=== PATIENT | female | born 1995 | race Caucasian/White ===

== ENCOUNTER 2023-07-09 00:28 | Inpatient (IN) ==
[2023-07-09] MEDS ORDERED: LIDOCAINE 1% LOCAL 20 ML VIAL INFIL PRN (01:08)
[2023-07-09] MEDS ORDERED: OXYTOCIN 30 UNITS/NSS 30 UNITS/500 ML BAG IV PRN ×2 (01:08→10:41)
[2023-07-09] MEDS: LACTATED RINGER'S 1,000 ML IV PRN ×2 (01:25→02:21)
[2023-07-09] MEDS ORDERED: fentaNYL citrate PF 100 MCG/2 ML VIAL ONE (01:28)
[2023-07-09] MEDS ORDERED: ePHEDrine sulfate 50 MG/ML AMP ONE (01:28)
[2023-07-09] MEDS ORDERED: fentANYL 2 MCG/ML BUPIVacaine 0.125%-NSS 100ML BAG ONE (01:29)
[2023-07-09] MEDS ORDERED: BUPIVACAINE 0.25% PF 30 ML VIAL ONE (01:29)
[2023-07-09] MEDS ORDERED: LIDOCAINE 2%/EPINEPHRINE 1:200,000 20 ML PF ONE (01:29)
[2023-07-09] MEDS ORDERED: SODIUM CHLORIDE 0.9% PF INJ 10 ML VIAL ONE (01:29)
[2023-07-09] MEDS ORDERED: PENICILLIN GK 6 MU in DEXTROSE 5% 250 ML IV STA (01:29)
--- NOTE | 2023-07-09 01:39 | History & Physical Report ---
Date of Service July 09, 2023 Assessment & Plan (1) Post-dates : Plan: Admit in labor. epidural planned Admission and Anticipated Discharge Date Admission Date: July 09, 2023 History of Present Illness Chief Complaint: onset of labor post-dates Primary Care Provider: Lashonda James MD 27 F P0000 at 40+ weeks admitted in labor. GBS is positive. Allergies Allergy/AdvReac Type Severity Reaction Status Date / Time ciprofloxacin [From Cipro] Allergy Rash Verified 07/09/23 00:58 sulfamethoxazole Allergy Hives Verified 07/09/23 00:58 [From Bactrim] trimethoprim [From Bactrim] Allergy Hives Verified 07/09/23 00:58 Home Medications Medication Instructions Recorded Confirmed Type vit no.133-ferrous 1 tab PO 07/09/23 History fumarate 28 mg-folic acid 800 mcg tablet () Patient History Surgical History (Updated 07/09/23 @ 00:57 by Elly Mcneal) H/O knee surgery [place] teeth extracted Social History Smoking Status: Never smoker Hx Alcohol Use: No Hx Substance Use: No Preferred 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 Beliefs That Will Affect Care: None marital status: Current Living Situation: Spouse Other Information That Helps Us Care for You: No Feels Safe at Home: Yes Safety Concerns: Feels Safe At This Time Assistive Devices: Glasses Review of Systems All systems reviewed & are unremarkable except as noted in HPI & below Physical Exam Constitutional: WD/WN, vitals as above Eyes: PERRL, conjunctivae normal, anicteric sclerae Respiratory: normal respiratory effort, lungs clear to auscultation Cardiovascular: Rate/Rhythm: regular rate Gastrointestinal (Abdomen): Inspection/Auscultation: abdomen normal to inspection Musculoskeletal: Extremities: extremities normal to inspection Skin: no rashes, warm and dry Neurologic: patellar DTR's 2+ bilat, sensation intact Psychiatric: A+Ox3, euthymic affect Genitourinary: OB Exam Abdomen: + fundal height and + vertex Manual OB Exam: + cervical dilation 4 cm, + cervical effacement 100% and + station -1 OB Exam Monitor Tracing: + external FHT monitor used, + external uterine monitor used, + category I and + normal FHT variability Results & Data Vital Signs (Past 12 Hours) Vital Signs Temp Pulse Resp BP 07/09/23 00:47 36.5 C 62 18 139/88 07/09/23 00:46 18 07/09/23 00:46 36.5 C 62 18 139/88 07/09/23 00:45 64 151/80 H Monitoring External Monitor Cat 1 (1) Post-dates Post-term type: 40-42 weeks gestation Qualified Code(s): O48.0 - Post-term
[2023-07-09 01:47] LABS: Hematocrit (blood only) 35.1 % (37.0-47.0); Hemoglobin 12.6 g/dl (12.0-16.0); Mean Corpuscular Hemoglobin 31.9 pg (25.0-34.0); Mean Corpuscular Hgb Conc 35.9 g/dL (32.0-36.0); Mean Corpuscular Volume 88.9 fL (80.0-100.0); Platelet Count 155 K/uL (130-400); RDW Coefficient of Variation 12.5 % (11.5-14.5); RDW Standard Deviation 40.5 fL (36.4-46.3); Red Blood Count 3.95 M/uL (4.20-5.40); White Blood Count 8.61 K/ul (4.8-10.8)
[2023-07-09] MEDS ORDERED: ePHEDrine sulfate 50 MG/ML AMP IV PRN (02:00)
[2023-07-09] MEDS ORDERED: ONDANSETRON INJ 2 MG/ML 2 ML VIAL IV PRN (02:00)
[2023-07-09] MEDS ORDERED: LIDOCAINE 2% MPF LOCAL 5 ML VIAL EPI PRN (02:00)
[2023-07-09] MEDS ORDERED: NALBUPHINE HCL 5 MG in SYRINGE 0 ML IV PRN (02:00)
[2023-07-09] MEDS ORDERED: ROPIVACAINE 0.5% PF 5 MG/ML 20 ML VIAL EPI PRN (02:00)
[2023-07-09] MEDS ORDERED: BUPIVACAINE 0.25% PF 30 ML VIAL EPI STA (02:00)
[2023-07-09] MEDS ORDERED: diphenhydrAMINE 50 MG/ML VIAL IV PRN (02:00)
[2023-07-09] MEDS ORDERED: SODIUM CHLORIDE 0.9% PF INJ 10 ML VIAL EPI STA (02:00)
[2023-07-09] MEDS ORDERED: fentANYL 2 MCG/ML BUPIVacaine 0.125%-NSS 100ML BAG EPI PRN (02:00)
[2023-07-09] MEDS ORDERED: NALOXONE HCL 0.4 MG/1 ML VIAL/CARP IV PRN (02:00)
[2023-07-09] MEDS ORDERED: SODIUM CHLORIDE 0.9% PF INJ 10 ML VIAL EPI PRN (02:00)
[2023-07-09] MEDS ORDERED: fentaNYL citrate PF 100 MCG/2 ML VIAL EPI STA (02:00)
[2023-07-09] MEDS ORDERED: BUPIVACAINE 0.25% PF 30 ML VIAL EPI PRN (02:00)
[2023-07-09] MEDS ORDERED: fentaNYL citrate PF 100 MCG/2 ML VIAL EPI PRN (02:00)
[2023-07-09] MEDS ORDERED: LIDOCAINE 2%/EPINEPHRINE 1:200,000 20 ML PF EPI STA (02:00)
[2023-07-09] MEDS ORDERED: NALOXONE HCL 1 MG in SODIUM CHLORIDE 0.9% 1,000 ML IV PRN (02:00)
--- NOTE | 2023-07-09 02:02 | Anesthesiology Consultation ---
Date of Service July 09, 2023 Assessment & Plan (1) Encounter for pre-operative examination: Chart Review Chart Review: Patient NOT seen in Pre Admission Testing and Acceptable Risk for Labor Epidural Consults Requested none History Height/Weight Height: 5 ft 7 in Weight: 83.915 kg Allergies Allergy/AdvReac Type Severity Reaction Status Date / Time ciprofloxacin [From Cipro] Allergy Rash Verified 07/09/23 00:58 sulfamethoxazole Allergy Hives Verified 07/09/23 00:58 [From Bactrim] trimethoprim [From Bactrim] Allergy Hives Verified 07/09/23 00:58 Medications Home Medications Medication Instructions Recorded Confirmed Last Taken vit no.133-ferrous 1 tab PO 07/09/23 07/08/23 fumarate 28 mg-folic acid 800 mcg tablet () Active Medications Generic Name Dose Route Start Last Admin Trade Name Freq PRN Reason Stop Dose Admin Lactated Ringer's 1,000 mls @ 125 mls/hr 07/09/23 01:08 07/09/23 02:21 Lr IV 07/11/23 01:07 125 mls/hr .Q8H PRN Administration L&D Protocol Protocol Penicillin G Potassium 6 mu/ 262 mls @ 262 mls/hr 07/09/23 01:29 07/09/23 01:39 Dextrose IV 07/09/23 02:28 262 mls/hr NOW STA Administration Past Medical History Medical History (Updated 07/09/23 @ 02:02 by Ismael Black MD) Encounter for pre-operative examination Exercise / Class Metabolic Activity II 4-5 Yardwork/Stairs/Walk up hill Past Surgical History Surgical History H/O knee surgery [place] teeth extracted Social History Smoking Status: Never smoker Hx Alcohol Use: No Hx Substance Use: No Physical Exam Vital Signs Last Vital Signs Temp 36.5 C 07/09/23 00:47 Pulse 75 07/09/23 02:23 Resp 18 07/09/23 00:47 BP 125/83 07/09/23 02:23 Pulse Ox 97 07/09/23 02:20 Testing Laboratory Results 07/09/23 01:30
[2023-07-09] MEDS: PENICILLIN GK 3 MU in DEXTROSE 5% 100 ML IV PRN ×2 (05:25→09:33)
--- OUTSIDE RECORDS SUMMARY | 2023-07-09 08:10 | External Medical Summary | Summary of Care ---
Author Name Unknown Organization [facility] Address [address] [facility] [place] [address] Phone [phone] Care Team Providers Care Cycle Analyst Name Role Phone Patrick Sanchez Primary Care Provider Reason for Visit * Reason Comments Return Visit Encounter Details Date Type Department Care Team (Latest Contact Info) Description 06/16/2023 8:45 AM EST Office Visit Gynecology/Obstetric [facility] [address] [place] [address] Jonathan Buckley MD [address] [place] [address] Supervision of normal first , antepartum*; Rh negative status during in third trimester; Carrier of group B Streptococcus Allergies Active Allergy Reactions Criticality Noted Date Comments Ciprofloxacin Hives 09/24/2016 Sulfa Antibiotics Hives Low 09/24/2016 documented as of this encounter (statuses as of 06/16/2023) Medications Medication Sig Dispensed Refills Start Date End Date Status 19 29-1 MG Oral Tablet Chewable Take by mouth. 0 Active Breast Pump Use as directed. 1 Each 0 05/18/2023 Active documented as of this encounter (statuses as of 06/16/2023) Active Problems Problem Noted Date Diagnosed Date Carrier of group B Streptococcus 06/03/2023 Rh negative status during 11/27/2022 Supervision of normal first , antepartu m 11/26/2022 Estimated Date of Delivery Comme nts Yes 06/28/2023 Based on last me nstrual period of 09/21/2022 documented as of this encounter (statuses as of 06/16/2023) Resolved Problems Problem Noted Date Diagnosed Date Resolved Date Umbilical cord cyst during p regnancy, antepartum 12/29/2022 04/01/2023 Last Assessment & Plan: Resolved at prior u/s. Low risk NIPT and msAFP appreciated. documented as of this encounter (statuses as of 06/16/2023) Immunizations Name Administration Dates Next Due COVID-19 mRNA, LNP-s, No Pre serve, 2-Dose Series ([employer]) 05/27/2021,08/18/2020,07/28/2020 Hepatitis B, 0-19 yrs 08/10/1996,1995,10/08 IPV - Polio Virus Vaccine (Inact) 1996,05/08/1996,03/01/1996, 996 MMR - Measles/Mumps/Rubella Vaccine 03/04/2001,0 11/08/1996 RSV Vac., Bivalent, Perfusio n F, Pf,0.5 Ml (Abrysvo) 05/21/2023 SEASONAL INFLUENZA, PF, 6 M & Above, IM , (FLULAVAL or FLUZONE) 05/10/2023,04/25/2022 Seasonal Influenza, Quadriva lent, No Preserve, IM 05/14/2021 TDAP (age 10 and older)(Boostrix) 04/16/2023,,08/05/2016 Varicella Vaccine (Chicken Pox) 09/12/2008,11/08 documented as of this encounter Social History Tobacco Use Types Packs/Day Years Used Date Smoking Tobacco: Never Smokeless Tobacco: Never Alcohol Use Standard Drinks/Week Comments No 0 (1 standard drink = 0.6 oz pur e alcohol) Hunger Vital Sign Answer Date Recorded Within the past 12 months, y ou worried that your food would run out before you got the money to buy more. Patient refused Within the past 12 months, t he food you bought just didn't last and you didn't have money to get more. Patient refused Malcolm Depression Scale Answer Date Recorded Malcolm Depression Scale Total 0 05/05/2023 The thought of harming myself has occurred to me . Never 05/05/2023 Estimated Date of Delivery Comme nts Yes 06/28/2023 Based on last me nstrual period of 09/21/2022 Sex and Gender Information Value Date Recorded Sex Assigned at Female 11/26/2022 9:59 AM EDT Gender Identity Female 11/26/2022 9:59 AM EDT Sexual Orientation Straight 11/26/2022 9: 59 AM EDT Job Start Date Occupation Industry Not on file Not on file Not on file documented as of this encounter Last Filed Vital Signs Vital Sign Reading Time Taken Comments Blood Pressure 112/68 06/16/2023 8:47 AM EST Pulse - - Temperature - - Respiratory Rate - - Oxygen Saturation - - Inhaled Oxygen Concentration - - Weight 82.1 kg (181 lb) 06/16/2023 8:47 AM EST Height 170.2 cm (5' 7") 06/16/2023 8:47 AM EST Body Mass Index 28.35 06/16/2023 8:47 AM EST documented in this encounter Progress Notes * Jonathan Buckley MD - 06/16/2023 8:55 AM EST Pt doing well No complaints Pt does not wish to have cervical exam today RTC 1 week * Loan Hendrickson LPN - 06/16/2023 8:47 AM EST 38w2d Denies any issues documented in this encounter Plan of Treatment Upcoming Encounters Date Type Department Care Team (Late st Contact Info) Description 06/23/2023 8:30 AM EST Office Visit Gynecology/Obstetrics [address] [place] [address] Linette High CRNP [address] [place] [address] 06/28/2023 9:30 AM EST Office Visit Gynecology/Obstetrics [facility] [address] [place] [address] Raven Abarca, [facility] [address] [facility] [place] [address] 07/19/2023 10:30 AM EST Telemedicine Gynecology/Obstetrics [facility] [address] [place] [address] Linette High CRNP [address] [place] [address] 08/10/2023 10:30 AM EST Office Visit Gynecology/Obstetrics [facility] [address] [place] [address] Linette High CRNP [address] [place] [address] Health Maintenance Due Date Last Done Comments Depression Screening 2007 COVID-19 Vaccine (2022-2 4 season) 2023 05/27/2021, 08/18/2020, 07/28/2020 Pap Smear 11/26/2025 11/26/2022 DTaP,Tdap,and Td Vaccines (4 - Td or Tdap) 04/16/2033 04/16/2023, 02/23/2022, 08/05/2016 Hepatitis B Completed 08/10/1996, 1995, 1995 Gonorrhea / Chlamydia Screen Discontinued 11/26/2022 Influenza Vaccine (FLU shot) Completed 09/2022, 04/25/2022, 05/14/2021 GARDASIL-HPV IMMUNIZATION SERIES Aged Out No longer eligible based on patient's age to complete this topic MENINGOCOCCAL (MENACTRA/MENVEO) Aged Out No longer eligible based on patient's age to complete this topic Pneumococcal Vaccine: Pediatrics (0 to 5 Years) and At-Risk Patients (6 to 64 Years) Aged Out No longer eligible based on patient's age to complete this topic documented as of this encounter Medical Devices Not on filedocumented as of this encounter Visit Diagnoses Diagnosis Supervision of normal first , antepartum- Primary Rh negative status during in third trimester Carrier of group B Streptococcus Carrier or suspected carrier of Group B streptococcus documented in this encounter Care Teams Cycle Analyst Relationship Specialty Start Date End Date Patrick Sanchez DO [address] [place] [address] PCP - General Family Medicine 07/28/21 documented as of this encounter
--- OUTSIDE RECORDS SUMMARY | 2023-07-09 08:10 | External Medical Summary | Summary of Care ---
Author Name Unknown Organization [facility] Address [address] [facility] [place] [address] Phone [phone] Care Team Providers Care Heel Painter Name Role Phone Patrick Sanchez Primary Care Provider Reason for Visit * Reason Comments Return Visit Encounter Details Date Type Department Care Team (Late st Contact Info) Description 06/23/2023 8:30 AM EST Office Visit Gynecology/Obstetri [facility] [address] [place] [address] Linette High CRNP [address] [place] [address] Supervision of normal first , antepartum*; Rh negative status during in third trimester; Carrier of group B Streptococcus Allergies Active Allergy Reactions Criticality Noted Date Comments Ciprofloxacin Hives 09/24/2016 Sulfa Antibiotics Hives Low 09/24/2016 documented as of this encounter (statuses as of 06/23/2023) Medications Medication Sig Dispensed Refills Start Date End Date Status 19 29-1 MG Oral Tablet Chewable Take by mouth. 0 Active Breast Pump Use as directed. 1 Each 0 05/18/2023 Active documented as of this encounter (statuses as of 06/23/2023) Active Problems Problem Noted Date Diagnosed Date Carrier of group B Streptococcus 06/03/2023 Rh negative status during 11/27/2022 Supervision of normal first , antepartu m 11/26/2022 Estimated Date of Delivery Comme nts Yes 06/28/2023 Based on last me nstrual period of 09/21/2022 documented as of this encounter (statuses as of 06/23/2023) Resolved Problems Problem Noted Date Diagnosed Date Resolved Date Umbilical cord cyst during p regnancy, antepartum 12/29/2022 04/01/2023 Last Assessment & Plan: Resolved at prior u/s. Low risk NIPT and msAFP appreciated. documented as of this encounter (statuses as of 06/23/2023) Immunizations Name Administration Dates Next Due COVID-19 mRNA, LNP-s, No Pre serve, 2-Dose Series ([employer]) 05/27/2021,08/18/2020,07/28/2020 Hepatitis B, 0-19 yrs 08/10/1996,1995,10/08 IPV [...] have money to get more. Patient refused [place] Depression Scale Answer Date Recorded [place] Depression Scale Total 0 05/05/2023 The thought [...] Sign Reading Time Taken Comments Blood Pressure 104/62 06/23/2023 8:20 AM EST Pulse - - Temperature - - Respiratory Rate - - Oxygen Saturation - - Inhaled Oxygen Concentration - - Weight 83.5 kg (184 lb) 06/23/2023 8:20 AM EST Height - - Body Mass Index 28.82 06/16/2023 8:47 AM EST documented in this encounter Progress Notes * Linette High CRNP - 06/23/2023 8:46 AM EST 39w2d Doing well, occasional menstrual-like cramping. Was regular on Wednesday AM, now erratic. No leaking/bleeding, good movement. Desires cervical exam - /-3. Ok with scheduling post dates IOL. Labor precautions reviewed. 1 week return. Industrial Laborer Documentation Provider requested chest painting leader. Name of chest painting leader: SURI Quiñones LPN * Rae Muijca LPN - 06/23/2023 8:20 AM EST 39w2d Denies vaginal bleeding/rom + movement Noticing some period like cramping- would like cervical check today No new concerns documented in this encounter Plan of Treatment Upcoming Encounters Date Type Department Care Team (Late st Contact Info) Description 06/28/2023 9:30 AM EST Office Visit Gynecology/Obstetrics [facility] [address] [place] [address] Raven Abarca, [facility] [address] [place] [address] 07/19/2023 10:30 AM EST Telemedicine Gynecology/Obstetrics [facility] [address] [place] [address] Linette High CRNP [address] [place] [address] 08/10/2023 10:30 AM EST Office Visit Gynecology/Obstetrics [facility] [address] [place] [address] Linette High CRNP [address] [place] [address] Health Maintenance Due Date Last Done Comments Depression Screening 2007 COVID-19 Vaccine ( - 2022-2 4 season) 2023 05/27/2021, 08/18/2020, 07/28/2020 Pap [...] streptococcus documented in this encounter Care Teams Heel Painter Relationship Specialty Start Date End Date Patrick Sanchez DO [address] [place] [address] PCP - General Family Medicine 07/28/21 documented as of this encounter
--- OUTSIDE RECORDS SUMMARY | 2023-07-09 08:10 | External Medical Summary | Summary of Care ---
Author Name Unknown Organization [facility] Address [address] [facility] [address] Phone [phone] Care Team Providers Care Bareback Rider Name Role Phone Patrick Sanchez Primary Care Provider Reason for Visit * Reason Onset Date Comments Forms Request 06/04/2023 Encounter Details Date Type Department Care Team (Late st Contact Info) Description 06/04/2023 Telephone Gynecology/Obstetrics [facility] [address] [place] [address] Katie Scales CRNP [address] [place] [address] Forms Request Allergies Active Allergy Reactions Criticality Noted Date Comments Ciprofloxacin Hives 09/24/2016 Sulfa Antibiotics Hives Low 09/24/2016 documented as of this encounter (statuses as of 06/10/2023) Medications Medication Sig Dispensed Refills Start Date End Date Status 19 29-1 MG Oral Tablet Chewable Take by mouth. 0 Active Breast Pump Use as directed. 1 Each 0 05/18/2023 Active documented as of this encounter (statuses as of 06/10/2023) Active Problems Problem Noted Date Diagnosed Date Carrier of group B Streptococcus 06/03/2023 Rh negative status during 11/27/2022 Supervision of normal first , antepartu m 11/26/2022 Estimated Date of Delivery Comme nts Yes 06/28/2023 Based on last me nstrual period of 09/21/2022 documented as of this encounter (statuses as of 06/10/2023) Resolved Problems Problem Noted Date Diagnosed Date Resolved Date Umbilical cord cyst during p regnancy, antepartum 12/29/2022 04/01/2023 Last Assessment & Plan: Resolved at prior u/s. Low risk NIPT and msAFP appreciated. documented as of this encounter (statuses as of 06/10/2023) Immunizations Name Administration Dates Next Due COVID-19 mRNA, LNP-s, No Pre serve, 2-Dose Series ([employer]) 05/27/2021,08/18/2020,07/28/2020 Hepatitis B, 0-19 yrs 08/10/1996,1995,10/08 IPV [...] have money to get more. Patient refused [place] Depression Scale Answer Date Recorded [place] Depression Scale Total 0 05/05/2023 The thought [...] on file documented as of this encounter Miscellaneous Notes * Telephone Encounter - Rosi Cifuentes OSA - 06/10/2023 8:11 AM EDT Forms signed, faxed and scanned to pt's chart. In triage for poultry picker. * Telephone Encounter - Rosi Cifuentes OSA - 06/04/2023 9:39 AM EDT Received FMLA forms via fax. Filled out and placed on Katie's desk for signature. documented in this encounter Plan of Treatment Upcoming Encounters Date Type Department Care Team (Late st Contact Info) Description 06/11/2023 8:30 AM EDT Office Visit Gynecology/Obstetrics [facility] [address] [place] [address] Katie Scales CRNP [address] [place] [address] 06/16/2023 8:45 AM EST Office Visit Gynecology/Obstetrics [facility] [address] [place] [address] Jonathan Buckley MD [address] [place] [address] 06/23/2023 8:30 AM EST Office Visit Gynecology/Obstetrics [facility] [address] [place], [place] [address] Linette High CRNP [address] [place] [address] 06/28/2023 9:30 AM EST Office Visit Gynecology/Obstetrics [facility] [address] [place], [place] [address] Raven Abarca, [facility] [address] [facility], [place] [address] 07/19/2023 10:30 AM EST Telemedicine Gynecology/Obstetrics [facility] [address] [place] [address] Linette High CRNP [address] [place] [address] 08/10/2023 10:30 AM EST Office Visit Gynecology/Obstetrics [facility] [address] [place] [address] Linette High CRNP [address] [place] [address] Health Maintenance Due Date Last Done Comments Depression Screening 2007 COVID-19 Vaccine (4 - 2022-2 4 season) 2023 05/27/2021, 08/18/2020, [...] Not on filedocumented as of this encounter Care Teams Bareback Rider Relationship Specialty Start Date End Date Patrick Sanchez DO [address] [place] [address] PCP - General Family Medicine 07/28/21 documented as of this encounter
--- OUTSIDE RECORDS SUMMARY | 2023-07-09 08:10 | External Medical Summary | Summary of Care ---
Author Name Unknown Organization [facility] Address [address] [facility] [address] Phone [phone] Care Team Providers Care Stacker Operator Name Role Phone Patrick Sanchez Primary Care Provider Reason for Visit * Reason Comments Return Visit Encounter Details Date Type Department Care Team (Late st Contact Info) Description 06/28/2023 9:30 AM EST Office Visit Gynecology/Obstetri [facility] [address] [facility] [place] [address] Raven Abarca CNM [address] [place] [address] Supervision of normal first , antepartum*; Rh negative status during in third trimester; Carrier of group B Streptococcus Allergies Active Allergy Reactions Criticality Noted Date Comments Ciprofloxacin Hives 09/24/2016 Sulfa Antibiotics Hives Low 09/24/2016 documented as of this encounter (statuses as of 06/28/2023) Medications Medication Sig Dispensed Refills Start Date End Date Status 19 29-1 MG Oral Tablet Chewable Take by mouth. 0 Active Breast Pump Use as directed. 1 Each 0 05/18/2023 Active documented as of this encounter (statuses as of 06/28/2023) Active Problems Problem Noted Date Diagnosed Date Carrier of group B Streptococcus 06/03/2023 Rh negative status during 11/27/2022 Supervision of normal first , antepartu m 11/26/2022 Estimated Date of Delivery Comme nts Yes 06/28/2023 Based on last me nstrual period of 09/21/2022 documented as of this encounter (statuses as of 06/28/2023) Resolved Problems Problem Noted Date Diagnosed Date Resolved Date Umbilical cord cyst during p regnancy, antepartum 12/29/2022 04/01/2023 Last Assessment & Plan: Resolved at prior u/s. Low risk NIPT and msAFP appreciated. documented as of this encounter (statuses as of 06/28/2023) Immunizations Name Administration Dates Next Due COVID-19 mRNA, LNP-s, No Pre serve, 2-Dose Series ([employer]) 05/27/2021,08/18/2020,07/28/2020 Hepatitis B, 0-19 yrs 08/10/1996,1995,10/08 IPV [...] have money to get more. Patient refused [place] Depression Scale Answer Date Recorded [place] Depression Scale Total 0 05/05/2023 The thought [...] Sign Reading Time Taken Comments Blood Pressure 110/80 06/28/2023 9:20 AM EST Pulse - - Temperature - - Respiratory Rate - - Oxygen Saturation - - Inhaled Oxygen Concentration - - Weight 83 kg (183 lb) 06/28/2023 9:20 AM EST Height 170.2 cm (5' 7") 06/28/2023 9:20 AM EST Body Mass Index 28.66 06/28/2023 9:20 AM EST documented in this encounter Progress Notes * Raven Abarca CNM - 06/28/2023 9:48 AM EST NESTOR at 40w Feeling well with no concerns. No RUC, LOF or VB. Good FM. Reports she is trying all the things to assist labor. Requesting VE with membrane sweep. Discussed theoretical risks of GBS + but that it is not a contraindication, she wishes to proceed. Membrane sweep completed pt tolerated well. Handbag Operator Documentation Provider requested truer pinion and wheel. Name of truer pinion and wheel: Garcia Sheth LPN IOL scheduled 07/12, no prior availability per [facility] this morning. NST and PASCALE scheduled for NOV. To call with DFM or labor warning s/s. * Willa Venegas LPN - 06/28/2023 9:23 AM EST 40w0d IOL 07/12/2023. Nothing sooner available as of this morning. documented in this encounter Plan of Treatment Upcoming Encounters Date Type Department Care Team (Late st Contact Info) Description 07/07/2023 9:00 AM EST Imaging Radiology [facility] [address] [place] [address] 07/19/2023 10:30 AM EST Telemedicine Gynecology/Obstetrics [facility] [address] [place] [address] Linette High CRNP [address] [place] [address] 08/10/2023 10:30 AM EST Office Visit Gynecology/Obstetrics [facility] [place] [address] Linette High CRNP [address] [place] [address] Scheduled Orders Name Type Priority Associated Diagnoses Orde r Schedule US PREG LIMITED 1 OR MORE FETUSES Medical Imaging Routine Supervision of normal first , antepartum Expected: 07/05/2023, Expires: 07/28/2024 Health Maintenance Due Date Last Done Comments [...] streptococcus documented in this encounter Care Teams Stacker Operator Relationship Specialty Start Date End Date Patrick Sanchez DO [address] [place] [address] PCP - General Family Medicine 07/28/21 documented as of this encounter
--- OUTSIDE RECORDS SUMMARY | 2023-07-09 08:10 | External Medical Summary | Summary of Care ---
Author Name Unknown Organization [facility] Address [address] [facility] [place] [address] Phone [phone] Care Team Providers Care Art Therapy Certified Supervisor Name Role Phone Patrick Sanchez Primary Care Provider Reason for Visit * Reason Comments Return Visit Encounter Details Date Type Department Care Team (Late st Contact Info) Description 06/02/2023 8:00 AM EDT Office Visit Gynecology/Obstetric s [facility] [address] [place] [address] Katie Scales CRNP [address] [place] [address] Supervision of normal first , antepartum*; Rh negative status during in third trimester Allergies Active Allergy Reactions Criticality Noted Date Comments Ciprofloxacin Hives 09/24/2016 Sulfa Antibiotics Hives Low 09/24/2016 documented as of this encounter (statuses as of 06/02/2023) Medications Medication Sig Dispensed Refills Start Date End Date Status 19 29-1 MG Oral Tablet Chewable Take by mouth. 0 Active Breast Pump Use as directed. 1 Each 0 05/18/2023 Active documented as of this encounter (statuses as of 06/02/2023) Active Problems Problem Noted Date Diagnosed Date Rh negative status during 11/27/2022 Supervision of normal first , antepartu m 11/26/2022 Estimated Date of Delivery Comme nts Yes 06/28/2023 Based on last me nstrual period of 09/21/2022 documented as of this encounter (statuses as of 06/02/2023) Resolved Problems Problem Noted Date Diagnosed Date Resolved Date Umbilical cord cyst during p regnancy, antepartum 12/29/2022 04/01/2023 Last Assessment & Plan: Resolved at prior u/s. Low risk NIPT and msAFP appreciated. documented as of this encounter (statuses as of 06/02/2023) Immunizations Name Administration Dates Next Due COVID-19 mRNA, LNP-s, No Pre serve, 2-Dose Series ([employer]) 05/27/2021,08/18/2020,07/28/2020 Hepatitis B, 0-19 yrs 08/10/1996,1995,10/08 IPV [...] have money to get more. Patient refused [place] Depression Scale Answer Date Recorded [place] Depression Scale Total 0 05/05/2023 The thought [...] Sign Reading Time Taken Comments Blood Pressure 100/62 06/02/2023 8:01 AM EDT Pulse - - Temperature - - Respiratory Rate - - Oxygen Saturation - - Inhaled Oxygen Concentration - - Weight 81.2 kg (179 lb) 06/02/2023 8:01 AM EDT Height 170.2 cm (5' 7") 06/02/2023 8:01 AM EDT Body Mass Index 28.04 06/02/2023 8:01 AM EDT documented in this encounter Progress Notes * SURI Melgoza - 06/02/2023 8:24 AM EDT 36w2d No concerns. Baby is active. No contractions, bleeding, or LOF. Received RSV vaccine since last visit, no side effects. GBS today. Head Doffer Documentation Provider requested tank farm operator. Name of tank farm operator: Genna * Genna Bach LPN - 06/02/2023 8:05 AM EDT 36w2d GBS today, pt denies any concerns. documented in this encounter Plan of Treatment Upcoming Encounters Date Type Department Care Team (Late st Contact Info) Description 06/11/2023 8:30 AM EDT Office Visit Gynecology/Obstetrics [facility] [address] [place] [address] Katie Scales CRNP [address] [place] [address] 06/16/2023 8:45 AM EST Office Visit Gynecology/Obstetrics [facility] [address] [place] [address] Jonathan Buckley MD [address] [place] [address] 06/23/2023 8:30 AM EST Office Visit Gynecology/Obstetrics [facility] [address] [place] [address] Linette High CRNP [address] [place] [address] 06/28/2023 9:30 AM EST Office Visit Gynecology/Obstetrics [facility] [address] [place] [address] Raven Abarca, [address], [place] [address] 07/19/2023 10:30 AM EST Telemedicine Gynecology/Obstetrics [facility] [address] [place] [address] Linette High CRNP [address] [place] [address] 08/10/2023 10:30 AM EST Office Visit Gynecology/Obstetrics [facility] [address] [place] [address] Linette High CRNP [address] [place] [address] Pending Results Name Type Priority Associated Diagnoses Date /Time GROUP B STREP CULTURE/PCR Lab Routine Supervision of normal first , antepartum 06/02/2023 8:35 AM EDT Health Maintenance Due Date Last Done Comments [...] Rh negative status during in third trimester documented in this encounter Care Teams Art Therapy Certified Supervisor Relationship Specialty Start Date End Date Patrick Sanchez DO [address] [place] [address] PCP - General Family Medicine 07/28/21 documented as of this encounter
--- OUTSIDE RECORDS SUMMARY | 2023-07-09 08:10 | External Medical Summary | Summary of Care ---
Author Name Unknown Organization [facility] Address [address] [facility] [place] [address] Phone [phone] Care Team Providers Care Mail Teller Name Role Phone Patrick Sanchez Primary Care Provider Encounter Details Date Type Department Care Team (Late st Contact Info) Description 06/09/2023 Telephone [facility] [address] [place] [address] Katie Scales CRNP [address] [place] [address] Allergies Active Allergy Reactions Criticality Noted Date Comments Ciprofloxacin Hives 09/24/2016 Sulfa Antibiotics Hives Low 09/24/2016 documented as of this encounter (statuses as of 06/09/2023) Medications Medication Sig Dispensed Refills Start Date End Date Status 19 29-1 MG Oral Tablet Chewable Take by mouth. 0 Active Breast Pump Use as directed. 1 Each 0 05/18/2023 Active documented as of this encounter (statuses as of 06/09/2023) Active Problems Problem Noted Date Diagnosed Date Carrier of group B Streptococcus 06/03/2023 Rh negative status during 11/27/2022 Supervision of normal first , antepartu m 11/26/2022 Estimated Date of Delivery Comme nts Yes 06/28/2023 Based on last me nstrual period of 09/21/2022 documented as of this encounter (statuses as of 06/09/2023) Resolved Problems Problem Noted Date Diagnosed Date Resolved Date Umbilical cord cyst during p regnancy, antepartum 12/29/2022 04/01/2023 Last Assessment & Plan: Resolved at prior u/s. Low risk NIPT and msAFP appreciated. documented as of this encounter (statuses as of 06/09/2023) Immunizations Name Administration Dates Next Due COVID-19 mRNA, LNP-s, No Pre serve, 2-Dose Series ([employer]) 05/27/2021,08/18/2020,07/28/2020 Hepatitis B, 0-19 yrs 08/10/1996,1995,10/08 IPV [...] have money to get more. Patient refused [place] Depression Scale Answer Date Recorded [place] Depression Scale Total 0 05/05/2023 The thought [...] encounter Miscellaneous Notes * Telephone Encounter - Genna Bach LPN - 06/09/2023 1:25 PM EDT FMLA forms signed by provider, given to Rosi. documented in this encounter Plan of Treatment Upcoming Encounters Date Type Department Care Team (Late st Contact Info) Description 06/11/2023 8:30 AM EDT Office Visit Gynecology/Obstetrics [facility] [address] [place] [address] Katie Scales CRNP [address] [place] [address] 06/16/2023 8:45 AM EST Office Visit Gynecology/Obstetrics [facility] [address] [place] [address] Jonathan Buckley MD [address] [place] [address] 06/23/2023 8:30 AM EST Office Visit Gynecology/Obstetrics [facility] [address] [place] [address] Linette High CRNP [address] [place] [address] 06/28/2023 9:30 AM EST Office Visit Gynecology/Obstetrics [facility] [address] [facility] [place] [address] Raven Abarca, NESHA [address] [facility] [place] [address] 07/19/2023 10:30 AM EST Telemedicine Gynecology/Obstetrics [facility] [address] [facility] [place] [address] [employer]ette crews CRNP [address] [place] [address] 08/10/2023 10:30 AM EST Office Visit Gynecology/Obstetrics [facility] [address] [place] [address] Linette High CRNP [address] [place] [address] Health Maintenance Due Date Last Done Comments [...] filedocumented as of this encounter Care Teams Mail Teller Relationship Specialty Start Date End Date Patrick Sanchez DO [address] [place] [address] PCP - General Family Medicine 07/28/21 documented as of this encounter
--- OUTSIDE RECORDS SUMMARY | 2023-07-09 08:10 | External Medical Summary | Summary of Care ---
Author Name Unknown Organization [facility] Address [address] [facility] [place] [address] Phone [phone] Care Team Providers Care Cane Cutter Name Role Phone Patrick Sanchez Primary Care Provider Reason for Visit * Reason Comments Return Visit Encounter Details Date Type Department Care Team (Late st Contact Info) Description 07/07/2023 9:45 AM EST Office Visit Gynecology/Obstetric s [facility] [address] [place] [address] Chichi Arizmendi PA-C [address] [place] [address] [facility] [address] [place] [address] Supervision of normal first , antepartum*; Rh negative status during in third trimester; Carrier of group B Streptococcus; Post-term , 40-42 weeks of gestation [O48.0] Allergies Active Allergy Reactions Criticality Noted Date Comments Ciprofloxacin Hives 09/24/2016 Sulfa Antibiotics Hives Low 09/24/2016 documented as of this encounter (statuses as of 07/07/2023) Medications Medication Sig Dispensed Refills Start Date End Date Status 19 29-1 MG Oral Tablet Chewable Take by mouth. 0 Active Breast Pump Use as directed. 1 Each 0 05/18/2023 Active documented as of this encounter (statuses as of 07/07/2023) Active Problems Problem Noted Date Diagnosed Date Carrier of group B Streptococcus 06/03/2023 Rh negative status during 11/27/2022 Supervision of normal first , antepartu m 11/26/2022 Estimated Date of Delivery Comme nts Yes 06/28/2023 Based on last me nstrual period of 09/21/2022 documented as of this encounter (statuses as of 07/07/2023) Resolved Problems Problem Noted Date Diagnosed Date Resolved Date Umbilical cord cyst during p regnancy, antepartum 12/29/2022 04/01/2023 Last Assessment & Plan: Resolved at prior u/s. Low risk NIPT and msAFP appreciated. documented as of this encounter (statuses as of 07/07/2023) Immunizations Name Administration Dates Next Due COVID-19 mRNA, LNP-s, No Pre serve, 2-Dose Series ([employer]) 05/27/2021,08/18/2020,07/28/2020 Hepatitis B, 0-19 yrs 08/10/1996,1995,10/08 IPV [...] have money to get more. Patient refused [place] Depression Scale Answer Date Recorded [place] Depression Scale Total 0 05/05/2023 The thought [...] Sign Reading Time Taken Comments Blood Pressure 112/74 07/07/2023 9:29 AM EST Pulse - - Temperature - - Respiratory Rate - - Oxygen Saturation - - Inhaled Oxygen Concentration - - Weight 83.9 kg (185 lb) 07/07/2023 9:29 AM EST Height 170.2 cm (5' 7") 07/07/2023 9:29 AM EST Body Mass Index 28.98 07/07/2023 9:29 AM EST documented in this encounter Progress Notes * Chichi Arizmendi PA-C - 07/07/2023 10:13 AM EST 41w2d Reports intermittent contractions. Have woken her up from nap, not consistent. Denies bleeding, leaking. Pos FM. Desires cervical check. IOL for postdates moved up to 07/09/2023. Library Historian Documentation Provider requested library historian. Name of library historian: MOODY Crouch ASSESSMENT assessment with Non-stress Test completed on 07/07/2023 at 41.2 weeks gestation for indication of Post MAVIS heart baseline: 130 bpm Variability: Moderate Decelerations: absent Accelerations: present Contractions: Present x 1, irregular NST start time: 09:31 NST stop time: 10:10 NST strip reviewed, interpreted, and approved by OB provider, Chichi Arizmendi PA-C. NST strip stored in clinic storage file Labor precautions reviewed RTC for visits Chichi Arizmendi PA-C documented in this encounter Nursing Notes * Willa Venegas LPN - 07/07/2023 9:27 AM EST 41w2d NESTOR, NST for post-dates. IOL moved to 07/09/2023. documented in this encounter Plan of Treatment Upcoming Encounters Date Type Department Care Team (Late st Contact Info) Description 07/19/2023 10:30 AM EST Telemedicine Gynecology/Obstetrics [facility] [address] [place] [address] Linette High CRNP [address] [place] [address] 08/10/2023 10:30 AM EST Office Visit Gynecology/Obstetrics [facility] [address] [place] [address] Linette High CRNP [address] [place] [address] Health Maintenance Due Date Last Done Comments [...] or suspected carrier of Group B streptococcus Post-term , 40-42 weeks of gestation [O48.0] Post term , unspecified episode of care documented in this encounter Care Teams Cane Cutter Relationship Specialty Start Date End Date Patrick Sanchez DO [address] [place] [address] PCP - General Family Medicine 07/28/21 documented as of this encounter
--- OUTSIDE RECORDS SUMMARY | 2023-07-09 08:10 | External Medical Summary | Summary of Care ---
Author Name Unknown Organization [facility] Address [address] [facility] [place] [address] Phone [phone] Care Team Providers Care Deadener Name Role Phone Patrick Sanchez Primary Care Provider Reason for Visit * Reason Comments Return Visit Encounter Details Date Type Department Care Team (Latest Contact Info) Description 06/11/2023 8:30 AM EDT Office Visit Gynecology/Obstetric s [facility] [address] [place] [address] Katie Scales CRNP [address] [place] [address] Supervision of normal first , antepartum*; Rh negative status during in third trimester; Carrier of group B Streptococcus Allergies Active Allergy Reactions Criticality Noted Date Comments Ciprofloxacin Hives 09/24/2016 Sulfa Antibiotics Hives Low 09/24/2016 documented as of this encounter (statuses as of 06/11/2023) Medications Medication Sig Dispensed Refills Start Date End Date Status 19 29-1 MG Oral Tablet Chewable Take by mouth. 0 Active Breast Pump Use as directed. 1 Each 0 05/18/2023 Active documented as of this encounter (statuses as of 06/11/2023) Active Problems Problem Noted Date Diagnosed Date Carrier of group B Streptococcus 06/03/2023 Rh negative status during 11/27/2022 Supervision of normal first , antepartu m 11/26/2022 Estimated Date of Delivery Comme nts Yes 06/28/2023 Based on last me nstrual period of 09/21/2022 documented as of this encounter (statuses as of 06/11/2023) Resolved Problems Problem Noted Date Diagnosed Date Resolved Date Umbilical cord cyst during p regnancy, antepartum 12/29/2022 04/01/2023 Last Assessment & Plan: Resolved at prior u/s. Low risk NIPT and msAFP appreciated. documented as of this encounter (statuses as of 06/11/2023) Immunizations Name Administration Dates Next Due COVID-19 mRNA, LNP-s, No Pre serve, 2-Dose Series ([employer]) 05/27/2021,08/18/2020,07/28/2020 Hepatitis B, 0-19 yrs 08/10/1996,1995,10/08 IPV [...] have money to get more. Patient refused [place] Depression Scale Answer Date Recorded [place] Depression Scale Total 0 05/05/2023 The thought [...] Sign Reading Time Taken Comments Blood Pressure 100/60 06/11/2023 8:22 AM EDT Pulse - - Temperature - - Respiratory Rate - - Oxygen Saturation - - Inhaled Oxygen Concentration - - Weight 81.6 kg (180 lb) 06/11/2023 8:22 AM EDT Height 170.2 cm (5' 7") 06/11/2023 8:22 AM EDT Body Mass Index 28.19 06/11/2023 8:22 AM EDT documented in this encounter Progress Notes * Katie Scales CRNP - 06/11/2023 9:26 AM EDT 37w4d Complaints: none Feeling well overall. Good FM. No contractions, bleeding, or LOF. SURI Melgoza * Genna Bach LPN - 06/11/2023 8:25 AM EDT 37w4d Pt denies any concerns. documented in this encounter Plan of Treatment Upcoming Encounters Date Type Department Care Team (Late st Contact Info) Description 06/16/2023 8:45 AM EST Office Visit Gynecology/Obst[facility]s [facility] [address] [place] [address] Jonathan Buckley MD [address] [place] [address] 06/23/2023 8:30 AM EST [facility] [address] [place] [address] [employer]ette crews CRNP [address] [place] [address] 06/28/2023 9:30 AM EST Office Visit [facility] [address] [place] [address] Raven Abarca, [address], [place] [address] 07/19/2023 10:30 AM EST Telemedicine [facility] [address] [place] [address] [employer]ette crews CRNP [address] [place] [address] 08/10/2023 10:30 AM EST [facility] [address] [place] [address] Linette High CRNP [address] [place], [place] [address] Health Maintenance Due Date Last Done Comments [...] streptococcus documented in this encounter Care Teams Deadener Relationship Specialty Start Date End Date Patrick Sanchez DO [facility] [place] [address] PCP - General Family Medicine 07/28/21 documented as of this encounter
--- OUTSIDE RECORDS SUMMARY | 2023-07-09 08:11 | External Medical Summary | Summary of Care ---
Author Name Unknown Organization [facility] Address [address] [place] [address] Phone [phone] Care Team Providers Care Dice Table Operator Name Role Phone Patrick Sanchez Primary Care Provider Reason for Visit * Reason Onset Date Comments Order Request 05/18/2023 Encounter Details Date Type Department Care Team Description 05/18/2023 Telephone Gynecology/Obstetrics [facility] [address] [place] [address] Elsy Shafer MD [address] [place] [address] Order Request Allergies Active Allergy Reactions Severity Noted Date Comments Ciprofloxacin Hives 09/24/2016 Sulfa Antibiotics Hives Low 09/24/2016 documented as of this encounter (statuses as of 05/19/2023) Medications Medication Sig Dispensed Refills Start Date End Date Status 19 29-1 MG Oral Tablet Chewable Take by mouth. 0 Active Breast Pump Use as directed. 1 Each 0 05/18/2023 Active documented as of this encounter (statuses as of 05/19/2023) Active Problems Problem Noted Date Rh negative status during 11/08 Supervision of normal first , a ntepartum 11/26/2022 Estimated Date of Delivery Comme nts Yes 06/28/2023 Based on last me nstrual period of 09/21/2022 documented as of this encounter (statuses as of 05/19/2023) Resolved Problems Problem Noted Date Resolved Date Umbilical cord cyst during , antepartum 12/29/2022 04/01/2023 Last Assessment & Plan: Resolved at prior u/s. Low risk NIPT and msAFP appreciated. documented as of this encounter (statuses as of 05/19/2023) Immunizations Name Administration Dates Next Due COVID-19 mRNA, LNP-s, No Pre serve, 2-Dose Series ([employer]) 05/27/2021,08/18/2020,07/28/2020 Hepatitis B, 0-19 yrs 08/10/1996,1995,10/08 IPV - Polio Virus Vaccine ([employer]) 1996,05/08/1996,03/01/1996, 996 MMR - Measles/Mumps/Rubella Vaccine 03/04/2001,0 11/08/1996 SEASONAL INFLUENZA, PF, 6 M & Above, [...] drink = 0.6 oz pur e alcohol) Estimated Date of Delivery Comme nts Yes 06/28/2023 Based on last me nstrual period of 09/21/2022 Sex Assigned at Date Recorded Female 11/26/2022 9:59 AM E DT Job Start Date Occupation Industry Not on file Not on file Not on file documented as of this encounter Miscellaneous Notes * Telephone Encounter - Ashtyn Hernandez RN - 05/19/2023 8:44 AM EDT Submitted. * Telephone Encounter - Willa Sheth LPN - 05/18/2023 8:38 AM EDT Ashtyn- Can you submit breast pump to [employer] for [facility]? Dr Shafer signed an order. documented in this encounter Plan of Treatment Upcoming Encounters Date Type Specialty Care Team Description 06/02/2023 Office Visit Gynecology Obstetrics Katie Scales CRNP [address] [place] [address] 06/11/2023 Office Visit Gynecology Obstetrics Katie Scales CRNP [address] [place] [address] 06/16/2023 Office Visit Gynecology Obstetrics Jonathan Buckley MD [address] [place] [address] 06/23/2023 Office Visit Gynecology Obstetrics [employer]er[facility]ette CRNP [address] [place] [address] 06/28/2023 Office Visit Gynecology Obstetrics Raven Abarca, [address] [place] [address] 07/19/2023 Telemedicine Gynecology Obstetrics [employer]er[facility]ette CRNP [address] [place] [address] 08/10/2023 Office Visit Gynecology Obstetrics [facility]er[facility] CRNP [address] [place] [address] Health Maintenance Due Date Last Done Comments [...] filedocumented as of this encounter Care Teams Dice Table Operator Relationship Specialty Start Date End Date Patrick Sanchez DO [address] [place] [address] PCP - General Family Medicine 07/28/21 documented as of this encounter
--- OUTSIDE RECORDS SUMMARY | 2023-07-09 08:11 | External Medical Summary | Summary of Care ---
Author Name Unknown Organization [facility] Address [address] [place] [facility] [place] [address] Phone [phone] Care Team Providers Care Fire Chief Name Role Phone Patrick Sanchez Primary Care Provider Reason for Visit * Reason Comments Return Visit Encounter Details Date Type Department Care Team Description 05/18/2023 Office Visit Gynecology/Obstetrics [facility] [address] [facility] [place] [address] Elsy Shafer MD [address] [place] [address] 34 weeks gestation of *; Rh negative status during in third trimester; Supervision of normal first , antepartum Allergies Active Allergy Reactions Severity Noted Date Comments Ciprofloxacin Hives 09/24/2016 Sulfa Antibiotics Hives Low 09/24/2016 documented as of this encounter (statuses as of 05/18/2023) Medications Medication Sig Dispensed Refills Start Date End Date Status 19 29-1 MG Oral Tablet Chewable Take by mouth. 0 Active Breast Pump Use as directed. 1 Each 0 05/18/2023 Active Abrysvo 120 MCG/0.5ML Intramuscular Solution Reconstituted (RSV Pre-Fusion F A&B Vac Rcmb) Inject 0.5 mL into a large muscle once for 1 dose. 0.5 mL 0 05/18/2023 05/18/2023 Active documented as of this encounter (statuses as of 05/18/2023) Active Problems Problem Noted Date Rh negative status during 11/08 Supervision of normal first , a ntepartum 11/26/2022 Estimated Date of Delivery Comme nts Yes 06/28/2023 Based on last me nstrual period of 09/21/2022 documented as of this encounter (statuses as of 05/18/2023) Resolved Problems Problem Noted Date Resolved Date Umbilical cord cyst during , antepartum 12/29/2022 04/01/2023 Last Assessment & Plan: Resolved at prior u/s. Low risk NIPT and msAFP appreciated. documented as of this encounter (statuses as of 05/18/2023) Immunizations Name Administration Dates Next Due COVID-19 [...] Sign Reading Time Taken Comments Blood Pressure 118/66 05/18/2023 8:31 AM EDT Pulse - - Temperature - - Respiratory Rate - - Oxygen Saturation - - Inhaled Oxygen Concentration - - Weight 79.4 kg (175 lb) 05/18/2023 8:31 AM EDT Height 170.2 cm (5' 7") 05/18/2023 8:31 AM EDT Body Mass Index 27.41 05/18/2023 8:31 AM EDT documented in this encounter Progress Notes * Elsy Shafer MD - 05/18/2023 8:45 AM EDT Patient is 27 year old at 34 1/7 weeks who presents for NESTOR visit Denies contractions, leaking of fluid, or vaginal bleeding. Noted good movement Denies headache, blurry vision, RUQ or epigastric pain. Problem list reviewed BP 118/66 | Ht 1.702 m (5' 7") | Wt 79.4 kg (175 lb) | LMP 09/21/2022 | BMI 27.41 kg/m | BSA 1.94m FH: 34 FHT: 140 Unsure position Plan: Labor and preeclampsia warnings reviewed RSV vaccine (32-36 01/13) -interested in it today. Currently unsure of billing through [employer], andis in stock at [facility] on [facility]. Prescription was sent for patient to [facility] Ul[facility] for position check ordered today RTC 2 weeks Jeffry Shafer MD PhD * Willa Sheth LPN - 05/18/2023 8:35 AM EDT 34w1d Denies concerns. Requests breast pump be submitted to [facility]. documented in this encounter Plan of Treatment Upcoming Encounters Date Type Specialty Care Team Description 05/18/2023 Imaging Radiology 06/02/2023 Office Visit Gynecology Obstetrics McHail, Katie L, SILVERWARE BUFFING MACHINE OPERATOR [address] [place] [address] 06/11/2023 Office Visit Gynecology Obstetrics Katie Scales CRNP [address] [place] [address] 06/16/2023 Office Visit Gynecology Obstetrics Jonathan Buckley MD [address] [place] [address] 06/23/2023 Office Visit Gynecology Obstetrics BackLinette crews CRNP [address] [place] [address] 06/28/2023 Office Visit Gynecology Obstetrics Raven Abarca, [facility] [address] 07/19/2023 Telemedicine [facility] [address] [place] [address] 08/10/2023 Office Visit [facility]cology [facility]etric[facility] CR[facility] [address] [place] [address] Scheduled Orders Name Type Priority Associated Diagnoses Orde r Schedule US PREG LIMITED 1 OR MORE FETUSES Medical Imaging Routine 34 weeks gestation of Expected: 05/18/2023, Expires: 06/18/2024 Health Maintenance Due Date Last Done Comments [...] as of this encounter Visit Diagnoses Diagnosis 34 weeks gestation of - Primary state, incidental Rh negative status during in third trimester Supervision of normal first , antepartum documented in this encounter Care Teams Fire Chief Relationship Specialty Start Date End Date Patrick Sanchez DO [address] [place] [address] PCP - General Family Medicine 07/28/21 documented as of this encounter
--- OUTSIDE RECORDS SUMMARY | 2023-07-09 08:11 | External Medical Summary | Summary of Care ---
Author Name Unknown Organization [facility] Address [address] [facility] [place] [address] Phone [phone] Care Team Providers Care Fiber Artist Name Role Phone Mushtaq Sanchezr Dottie Primary Care Provider Reason for Visit * Reason Comments Return Visit Encounter Details Date Type Department Care Team Description 05/05/2023 Office Visit Gynecology/Obstetrics [facility] [address] [place] [address] Chichi Arizmendi PA-C [address] [place] [address] Supervision of normal first , antepartum*; Rh negative status during in third trimester Allergies Active Allergy Reactions Severity Noted Date Comments Ciprofloxacin Hives 09/24/2016 Sulfa Antibiotics Hives Low 09/24/2016 documented as of this encounter (statuses as of 05/05/2023) Medications Medication Sig Dispensed Refills Start Date End Date Status 19 29-1 MG Oral Tablet Chewable Take by mouth. 0 Activ e documented as of this encounter (statuses as of 05/05/2023) Active Problems Problem Noted Date Rh negative status during 11/08 Supervision of normal first , a ntepartum 11/26/2022 Estimated Date of Delivery Comme nts Yes 06/28/2023 Based on last me nstrual period of 09/21/2022 documented as of this encounter (statuses as of 05/05/2023) Resolved Problems Problem Noted Date Resolved Date Umbilical cord cyst during , antepartum 12/29/2022 04/01/2023 Last Assessment & Plan: Resolved at prior u/s. Low risk NIPT and msAFP appreciated. documented as of this encounter (statuses as of 05/05/2023) Immunizations Name Administration Dates Next Due COVID-19 mRNA, LNP-s, No Pre serve, 2-Dose Series (Pfizer) 05/27/2021,08/18/2020,07/28/2020 Hepatitis B, 0-19 yrs 08/10/1996,1995,10/08 IPV - Polio Virus Vaccine (Inact) 1996,05/08/1996,03/01/1996, 996 MMR - Measles/Mumps/Rubella Vaccine 03/04/2001,0 11/08/1996 Seasonal Influenza, PF, 6 mo ns & Above, IM , (Flulaval) 04/25/2022 Seasonal Influenza, Quadriva lent, No Preserve, IM [...] Sign Reading Time Taken Comments Blood Pressure 108/64 05/05/2023 11:46 AM EDT Pulse - - Temperature - - Respiratory Rate - - Oxygen Saturation - - Inhaled Oxygen Concentration - - Weight 78.6 kg (173 lb 3.2 oz) 05/05/2023 11:46 AM EDT Height 170.2 cm (5' 7") 05/05/2023 11:46 AM EDT Body Mass Index 27.13 05/05/2023 11:46 AM EDT documented in this encounter Progress Notes * Chichi Arizmendi PA-C - 05/05/2023 11:45 AM EDT 32w2d First time seeing patient. Doing well, without complaints. Denies bleeding/leaking. Baby is moving. Called in last Wednesday d/t tightening, no pain, now resolved. Possible BH contractions. No cramping. Counseled on flu vaccine and recommendation for it it , pt works for [employer] prefers to get through work. Plans in next week. RTC in 2 weeks Chichi Arizmendi PA-C documented in this encounter Nursing Notes * Ashtyn Hernandez, MARBIN - 05/05/2023 11:47 AM EDT Patient here for NESTOR 32w3d No concerns She will get flu shot at work Ashtyn Hernandez, RN documented in this encounter Plan of Treatment Upcoming Encounters Date Type Specialty Care Team Description 05/18/2023 Office Visit Gynecology Obstetrics Elsy Shafer MD [address] [place] [address] [place] [address] 06/02/2023 Office Visit Gynecology Obstetrics Katie Scales CRNP [address] [place] [address] 06/11/2023 Office Visit Gynecology Obstetrics Katie Scales CRNP [address] [place] [address] 06/16/2023 Office Visit Gynecology Obstetrics Jonathan Buckley MD [address] [place] [address] 06/23/2023 Office Visit Gynecology Obstetrics BackerLinette CRNP [address] [place] [address] 06/28/2023 Office Visit Gynecology Obstetrics Raven Abarca, [facility] [address] 07/19/2023 Office Visit Gynecology Obstetrics BackerLinette CRNP [address] [place] [address] 08/10/2023 Office Visit Gynecology Obstetrics BackerLinette CRNP [address] [place] [address] Health Maintenance Due Date Last Done Comments Depression Screening 2007 COVID-19 Vaccine (4 - Pfizer series) 07/22/2021 05/27/2021, 08/18/2020, 07/28/2020 Influenza Vaccine (FLU shot) (#1) 2023 04/25/2022, 05/14/2021 Pap Smear 11/26/2025 11/26/2022 DTaP,Tdap,and Td Vaccines (4 - Td or Tdap) 04/16/2033 04/16/2023, 02/23/2022, 08/05/2016 Hepatitis B Completed 08/10/1996, 1995, 1995 Gonorrhea / Chlamydia Screen Discontinued 11/26/2022 GARDASIL-HPV IMMUNIZATION SERIES Aged Out No longer [...] trimester documented in this encounter Care Teams Fiber Artist Relationship Specialty Start Date End Date Patrick Sanchez DO [address] [place] [address] PCP - General Family Medicine 07/28/21 documented as of this encounter
--- OUTSIDE RECORDS SUMMARY | 2023-07-09 08:11 | External Medical Summary ---
Author Name Unknown Address Unknown Organization [id number]:[facility] [place] [address] [place] [address] Laboratory Report Ordering Provider Test Date Status JAMACHARO 04/06/2023 12:07:03 Final Observation Date Value Abnormality Reference (Units ) Status ABO 04/06/2023 12:07:03 A Final RH 04/06/2023 12:07:03 Negative Final RED BLOOD CELL ANTIBODY SCREEN 04/06/2023 12:07:03 Negative Final SPECIMEN EXPIRATION DATE 04/06/2023 12:07:03 04/09/2023 23:59 Final Performing Location [facility] [address] [place] [address]
--- OUTSIDE RECORDS SUMMARY | 2023-07-09 08:11 | External Medical Summary | Summary of Care ---
Author Name Unknown Organization [facility] Address [address] [facility] [place] [address] Phone [phone] Care Team Providers Care Pole Incisor Operator Name Role Phone Mushtaq Sanchezjaspreet Belledrew Primary Care Provider Reason for Visit * Reason Comments Return Visit Encounter Details Date Type Department Care Team Description 02/24/2023 Office Visit Gynecology/Obstetrics [facility] [address] [place] [address] Katie Scales CRNP [address] [place] [address] Supervision of normal first , antepartum*; Rh negative status during in second trimester; Umbilical cord cyst during , antepartum Allergies Active Allergy Reactions Severity Noted Date Comments Ciprofloxacin Hives 09/24/2016 Sulfa Antibiotics Hives Low 09/24/2016 documented as of this encounter (statuses as of 02/24/2023) Medications Medication Sig Dispensed Refills Start Date End Date Status 19 29-1 MG Oral Tablet Chewable Take by mouth. 0 Activ e documented as of this encounter (statuses as of 02/24/2023) Active Problems Problem Noted Date Umbilical cord cyst during , an tepartum 12/29/2022 Last Assessment & Plan: Resolved at prior u/s. Low risk NIPT and msAFP appreciated. Rh negative status during 11/08 Supervision of normal first , a ntepartum 11/26/2022 Estimated Date of Delivery Comme nts Yes 06/28/2023 Based on last me nstrual period of 09/21/2022 documented as of this encounter (statuses as of 02/24/2023) Immunizations Name Administration Dates Next Due COVID-19 mRNA, LNP-s, No Pre serve, 2-Dose Series (Pfizer) 05/27/2021,08/18/2020,07/28/2020 Hepatitis B, 0-19 yrs 08/10/1996,1995,10/08 IPV - Polio Virus Vaccine (Inact) 1996,05/08/1996,03/01/1996, 996 MMR - Measles/Mumps/Rubella Vaccine 03/04/2001,0 11/08/1996 Seasonal Influenza, Quadriva lent, No Preserve, 6 Mons & Above, IM 04/25/2022 Seasonal Influenza, Quadriva lent, No Preserve, IM 05/14/2021 TDAP (age 10 and older)(Boostrix) 02/23/2022, Varicella Vaccine (Chicken Pox) 09/12/2008,11/08 documented as [...] Sign Reading Time Taken Comments Blood Pressure 116/60 02/24/2023 7:50 AM EDT Pulse - - Temperature - - Respiratory Rate - - Oxygen Saturation - - Inhaled Oxygen Concentration - - Weight 75.5 kg (166 lb 6.4 oz) 02/24/2023 7:50 A M EDT Height 170.2 cm (5' 7") 02/24/2023 7:50 AM EDT Body Mass Index 26.06 02/24/2023 7:50 AM EDT documented in this encounter Progress Notes * SURI Melgoza - 02/24/2023 8:12 AM EDT 22w2d No concerns. Had a day of round ligament pain, feeling fine now. Baby is active. No bleeding or LOF. Reviewed glucola, packet given. Works at [employer], plans to complete there sometime after her next appt. SURI Melgoza documented in this encounter Nursing Notes * JACKLYN Alarcon - 02/24/2023 7:56 AM EDT 22w2d Pt denies any concerns, 28wk packet provided. documented in this encounter Plan of Treatment Upcoming Encounters Date Type Specialty Care Team Description 04/01/2023 Office Visit Gynecology Obstetrics Linette High CRNP [address] [place] [address] 04/16/2023 Office Visit Gynecology Obstetrics Linette High CRNP [address] [place] [address] 05/05/2023 Office Visit Gynecology Obstetrics Elsy Shafer MD [address] [place] [address] [place] [address] 05/18/2023 Office Visit Gynecology Obstetrics Jonathan Buckley MD [address] [place] [address] 06/02/2023 Office Visit Gynecology Obstetrics Katie Scales CRNP [address] [place] [address] 06/11/2023 Office Visit Gynecology Obstetrics Katie Scales CRNP [address] [place] [address] 06/16/2023 Office Visit Gynecology Obstetrics Jonathan Buckley MD [address] [place], [place] [address] 06/23/2023 Office Visit Gynecology Obstetrics Linette High CRNP [address] [place] [address] 06/28/2023 Office Visit Gynecology Obstetrics Raven Abarca, [facility] [address] [facility] [place] [address] Scheduled Orders Name Type Priority Associated Diagnoses Orde r Schedule 50-G GESTATIONAL GLUCOSE, 1 HOUR Lab Routine Supervision of normal first , antepartum Expected: 03/26/2023 (Approximate), Expires: 02/25/2024 CBC WITH WBC DIFFERENTIAL AND ANEMIA REFLEX WORKUP Lab Routine Supervision of normal first , antepartum Expected: 03/26/2023 (Approximate), Expires: 02/25/2024 SYPHILIS ANTIBODY SCREEN WITH REFLEX TO RPR Lab Routine Supervision of normal first , antepartum Expected: 03/26/2023 (Approximate), Expires: 02/25/2024 Health Maintenance Due Date Last Done Comments Depression Screening, Annual for Pts 12 and Over 2007 COVID-19 Vaccine (4 - Pfizer series) 07/22/2021 05/27/2021, 08/18/2020, 07/28/2020 Influenza Vaccine (FLU shot) (#1) 2023 04/25/2022, 05/14/2021 Pap Smear 11/26/2025 11/26/2022 DTaP,Tdap,and Td Vaccines (3 - Td or Tdap) 02/24/2032 02/23/2022, 08/05/2016 Hepatitis B Completed 08/10/1996, 1995, 1995 Gonorrhea / Chlamydia Screen Discontinued 11/26/2022 Hepatitis C Screening Completed 11/26/2022 , 11/26/2022, 11/26/2022 GARDASIL-HPV IMMUNIZATION SERIES Aged Out No [...] antepartum- Primary Rh negative status during in second trimester Umbilical cord cyst during , antepartum documented in this encounter Care Teams Pole Incisor Operator Relationship Specialty Start Date End Date Patrick Sanchez DO [address] [place] [address] PCP - General Family Medicine 07/28/21 documented as of this encounter
--- OUTSIDE RECORDS SUMMARY | 2023-07-09 08:11 | External Medical Summary ---
Author Name Unknown Address Unknown Organization K01:[facility] [place] [address] [place] [address] Laboratory Report Ordering Provider Test Date Status ARTUR MCKAY 04/06/2023 12:07:03 Final Observation Date Value Abnormality Reference (Units ) Status Glucose [Moles/volume] in Serum or Plasma --1 hour post 50 g glucose PO 04/06/2023 12:07:03 127 70-129 (mg/dL) Final Performing Location [facility] [place] [address] [place] [address]
--- OUTSIDE RECORDS SUMMARY | 2023-07-09 08:11 | External Medical Summary | Summary of Care ---
Author Name Unknown Organization [facility] Address [address] [facility] [place] [address] Phone [phone] Care Team Providers Care Impregnating Tank Operator Name Role Phone Daniel Patrick Sinclair DO Primary Care Provider Reason for Visit * Reason Comments Return Visit Encounter Details Date Type Department Care Team Description 04/16/2023 Office Visit Gynecology/Obstetric s David Walton [address] [place] [address] Linette High CRNP [address] [facility] [place] [address] Supervision of normal first , antepartum*; Rh negative status during in third trimester; Need for prophylactic vaccination with combined nanlbijdye-mftdbon-qlsf ussis (DTP) vaccine; Need for prophylactic immunotherapy Allergies Active Allergy Reactions Severity Noted Date Comments Ciprofloxacin Hives 09/24/2016 Sulfa Antibiotics Hives Low 09/24/2016 documented as of this encounter (statuses as of 04/16/2023) Medications Medication Sig Dispensed Refills Start Date End Date Status 19 29-1 MG Oral Tablet Chewable Take by mouth. 0 Activ e Hospital, Clinic, or Other Facility Administered Medication Ordered Dose Route Frequency Start Date End Date Status Rho D Immune Globulin (Rhophylac) inj 300 mcgIndications:Rh negative status during in third trimester,Need for prophylactic immunotherapy 300 mcg IM ONCE 04/16/2023 3 Ended documented as of this encounter (statuses as of 04/16/2023) Active Problems Problem Noted Date Rh negative status during 11/08 Supervision of normal first , a ntepartum 11/26/2022 Estimated Date of Delivery Comme nts Yes 06/28/2023 Based on last me nstrual period of 09/21/2022 documented as of this encounter (statuses as of 04/16/2023) Resolved Problems Problem Noted Date Resolved Date Umbilical cord cyst during , antepartum 12/29/2022 04/01/2023 Last Assessment & Plan: Resolved at prior u/s. Low risk NIPT and msAFP appreciated. documented as of this encounter (statuses as of 04/16/2023) Immunizations Name Administration Dates Next Due COVID-19 [...] Date Smoking Tobacco: Never Smokeless Tobacco: Never Tobacco Cessation:Counseling Given: Not Answered Alcohol Use Standard Drinks/Week Comments No 0 [...] Sign Reading Time Taken Comments Blood Pressure 108/60 04/16/2023 8:22 AM EDT Pulse - - Temperature - - Respiratory Rate - - Oxygen Saturation - - Inhaled Oxygen Concentration - - Weight 78.3 kg (172 lb 9.6 oz) 04/16/2023 8:22 A M EDT Height 170.2 cm (5' 7") 04/16/2023 8:22 AM EDT Body Mass Index 27.03 04/16/2023 8:22 AM EDT documented in this encounter Progress Notes * SURI Patel - 04/16/2023 8:24 AM EDT 29w 4d Tdap/RhoGAM today. Doing well, + movement. Recommend flu shot in . No ctx/bleeding. Occasional MSK abdominal pain w/certain movements and exercises. Encouraged to call if this becomes more severe/frequent. 2 week return SURI Patton documented in this encounter Nursing Notes * Ashtyn Hernandez RN - 04/16/2023 8:39 AM EDT Patient here for TDAP and RHOGAM injection. Patient doing well no complaints. Injection given IM asordered. Patient tolerated well. Patient to follow up as directed. Patient instructed to call if any complications. Patient verbalized understanding of instructions given and her follow up appt for 2weeks. Injection site: Left Deltoid- TDAP Right Gluteal - RHOGAM Medication Source: Dispensed stock medication * Ashtyn Hernandez RN - 04/16/2023 8:23 AM EDT Patient here for NESTOR No concerns Rhogam and tdap today Has labs on 04/06 documented in this encounter Plan of Treatment Upcoming Encounters Date Type Specialty Care Team Description 05/05/2023 Office Visit Gynecology Obstetrics Elsy Shafer MD [address] [place] [address] 05/18/2023 Office Visit Gynecology Obstetrics Elsy Shafer MD [address] [place] [address] 06/02/2023 Office Visit Gynecology Obstetrics Katie Scales CRNP [address] [place] [address] 06/11/2023 Office Visit Gynecology Obstetrics Katie Scales CRNP [address] [place] [address] 06/16/2023 Office Visit Gynecology Obstetrics Jonathan Buckley MD [address] [place] [address] 06/23/2023 Office Visit Gynecology Obstetrics Linette High CRNP [address] [place] [address] 06/28/2023 Office Visit Gynecology Obstetrics Raven Abarca CNM [address] [place] [address] Health Maintenance Due Date Last Done Comments [...] Rh negative status during in third trimester Need for prophylactic vaccination with combined gvaltsbcra-pehvotq-bbkuypovm (DTP) vaccine Need for prophylactic immunotherapy documented in this encounter Administered Medications Inactive Administered Medications - up to 3 most recent administrations Medication Order MAR Action Action Date Dose Rate Site Rho D Immune Globulin (Rhophylac) inj 300 mcg 300 mcg, Intramuscular, ONCE, On Wed04/16/23 at 0900, For 1 dose, Do not administer until type and screen has been collected! 1 MCG = 5 INTERNATIONAL UNITS Given 04/16/2023 8:35 AM EDT 300 mcg Dorsogluteal Right documented in this encounter Care Teams Impregnating Tank Operator Relationship Specialty Start Date End Date Patrick Sanchez DO [address] [place] [address] PCP - General Family Medicine 07/28/21 documented as of this encounter
--- OUTSIDE RECORDS SUMMARY | 2023-07-09 08:11 | External Medical Summary ---
Author Name Unknown Address Unknown Organization K01:[facility] [place] [facility] [address] [facility] [address] [place] [address] Laboratory Report Ordering Provider Test Date Status ARTUR MCKAY 06/02/2023 08:35:52 Final Observation Date Value Abnormality Reference (Units ) Status Streptococcus agalactiae DNA [Presence] in Specimen by LUIS with probe detection 06/02/2023 08:35:52 Positive Abnormal Negative Final Group B Streptococcus detect ed by culture-enhanced PCR (amplified probe).
The collection of vaginal/rectal swab specimen combinations (FDA approved specimen type) is optimal for the detection of Group B Streptococcus. Single source collection (vaginal only or rectal only) or alternate specimen sources may lead to false negative results. Performing Location [facility] [place] [address] [facility] [place] [address]
--- OUTSIDE RECORDS SUMMARY | 2023-07-09 08:11 | External Medical Summary | Summary of Care ---
Author Name Unknown Organization [facility] Address [address] [facility] [place] [address] Phone [phone] Care Team Providers Care Locomotive Oiler Name Role Phone Mushtaq Sanchezr Dottie Primary Care Provider Encounter Details Date Type Department Care Team Description 04/30/2023 Telephone Gynecology/Obstetrics [facility] [address] [place] [address] Sho Dodson MD [address] [place] [address] Allergies Active Allergy Reactions Severity Noted Date Comments Ciprofloxacin Hives 09/24/2016 Sulfa Antibiotics Hives Low 09/24/2016 documented as of this encounter (statuses as of 04/30/2023) Medications Medication Sig Dispensed Refills Start Date End Date Status 19 29-1 MG Oral Tablet Chewable Take by mouth. 0 Activ e documented as of this encounter (statuses as of 04/30/2023) Active Problems Problem Noted Date Rh negative status during 11/08 Supervision of normal first , a ntepartum 11/26/2022 Estimated Date of Delivery Comme nts Yes 06/28/2023 Based on last me nstrual period of 09/21/2022 documented as of this encounter (statuses as of 04/30/2023) Resolved Problems Problem Noted Date Resolved Date Umbilical cord cyst during , antepartum 12/29/2022 04/01/2023 Last Assessment & Plan: Resolved at prior u/s. Low risk NIPT and msAFP appreciated. documented as of this encounter (statuses as of 04/30/2023) Immunizations Name Administration Dates Next Due COVID-19 [...] encounter Miscellaneous Notes * Telephone Encounter - Rae Mujica LPN - 04/30/2023 2:41 PM EDT Pt calling in 31w4d Concerned that her belly is feeling hard States cedrick rose since 25w0d + movement Denies vaginal bleeding/rom Advised pt that sometimes with positioning of baby she may notice periods of more hardness than others Advised to push lots of fluids to help with cedrick rose Reviewed triage number with pt to call with any changes over the weekend. Pt verbalized understanding. documented in this encounter Plan of Treatment Upcoming Encounters Date Type Specialty Care Team Description 05/05/2023 Office Visit Gynecology Obstetrics Chichi Arizmendi PA-C [address] [place] [address] 05/18/2023 Office Visit Gynecology Obstetrics Elsy Shafer MD [address] [place] [address] 06/02/2023 Office Visit Gynecology Obstetrics Katie Scales CRNP [address] [place] [address] 06/11/2023 Office Visit Gynecology Obstetrics Katie Scales CRNP [address] [place] [address] 06/16/2023 Office Visit Gynecology Obstetrics Jonathan Buckley MD [address] [place] [address] 06/23/2023 Office Visit Gynecology Obstetrics Linette High CRNP [address] [place] [address] 06/28/2023 Office Visit Gynecology Obstetrics Raven Abarca CNM [address] [place] [address] Health Maintenance Due Date Last Done Comments [...] filedocumented as of this encounter Care Teams Locomotive Oiler Relationship Specialty Start Date End Date Patrick Sanchez DO [address] [place] [address] PCP - General Family Medicine 07/28/21 documented as of this encounter
--- OUTSIDE RECORDS SUMMARY | 2023-07-09 08:11 | External Medical Summary ---
Author Name Unknown Address Unknown Organization K01:[facility] - [address] [place] [address] Laboratory Report Ordering Provider Test Date Status ARTUR MCKAY 04/06/2023 12:07:03 Final Observation Date Value Abnormality Reference (Units ) Status WBC, Total 04/06/2023 12:07:03 9.42 4.00-10.8 0 (K/uL) Final RBC 04/06/2023 12:07:03 3.78 3.85-5.15 (M/uL) Final Hemoglobin 04/06/2023 12:07:03 12.2 12.0-15.3 (g/dL) Final Anemia reflex testing trigge rs on a HGB < 12.0 for Females and HGB < 13.0 for Males in accordance with the WHO Anemia Guidelines
Anemia reflex testing triggers on a HGB < 12.0 for Females and HGB < 13.0 for Males in accordance with the WHO Anemia Guidelines HCT 04/06/2023 12:07:03 36.8 36.0-45.2 (%) Final MCV 04/06/2023 12:07:03 97.4 81.5-97.5 (fL) Final MCH 04/06/2023 12:07:03 32.3 27.0-34.0 (pg) Final MCHC 04/06/2023 12:07:03 33.2 32.0-36.0 (g/dL) Final RDW 04/06/2023 12:07:03 13.1 11.5-15.5 (%) Final Platelets 04/06/2023 12:07:03 177 140-400 (K /uL) Final MPV 04/06/2023 12:07:03 9.9 6.6-11.1 ( fL) Final Nucleated erythrocytes/100 leukocytes [Ratio] in Blood by Automated count 04/06/2023 12:07:03 0 <=0 (/100 WBCs) Fi nal Performing Location [facility] - [address] [place] [address]
--- OUTSIDE RECORDS SUMMARY | 2023-07-09 08:11 | External Medical Summary | Summary of Care ---
Author Name Unknown Organization [facility] Address [address] [place] [address] Phone [phone] Care Team Providers Care Hide Examiner Name Role Phone Patrick Sanchez Primary Care Provider Encounter Details Date Type Department Care Team Description 03/11/2023 Telephone [facility] [address] [place] [address] Blanco Whittington MD [address] [place] [address] Allergies Active Allergy Reactions Severity Noted Date Comments Ciprofloxacin Hives 09/24/2016 Sulfa Antibiotics Hives Low 09/24/2016 documented as of this encounter (statuses as of 03/11/2023) Medications Medication Sig Dispensed Refills Start Date End Date Status 19 29-1 MG Oral Tablet Chewable Take by mouth. 0 Activ e documented as of this encounter (statuses as of 03/11/2023) Active Problems Problem Noted Date Umbilical cord [...] as of this encounter (statuses as of 03/11/2023) Immunizations Name Administration Dates Next Due COVID-19 [...] on file documented as of this encounter Plan of Treatment Upcoming Encounters Date Type Specialty Care Team Description 04/01/2023 Office Visit Gynecology Obstetrics Linette High CRNP [address] [place] [address] 04/16/2023 Office Visit Gynecology Obstetrics Linette High CRNP [address] [place] [address] 05/05/2023 Office Visit Gynecology Obstetrics Elsy Shafer MD [address] [facility] [place] [address] 05/18/2023 Office Visit Gynecology Obstetrics Jonathan Buckley MD [address] [place] [address] 06/02/2023 Office Visit Gynecology Obstetrics Katie Scales CRNP [address] [place] [address] 06/11/2023 Office Visit Gynecology Obstetrics Katie Scales CRNP [address] [place] [address] 06/16/2023 Office Visit Gynecology Obstetrics Jonathan Buckley MD [address] [place] [address] 06/23/2023 Office Visit Gynecology Obstetrics Linette High CRNP [address] [place] [address] 06/28/2023 Office Visit Gynecology Obstetrics Raven Abarca, NESHA [address] [place] [address] Health Maintenance Due Date Last Done [...] filedocumented as of this encounter Care Teams Hide Examiner Relationship Specialty Start Date End Date Patrick Sanchez DO [address] [place] [address] PCP - General Family Medicine 07/28/21 documented as of this encounter
--- OUTSIDE RECORDS SUMMARY | 2023-07-09 08:11 | External Medical Summary | Summary of Care ---
Author Name Unknown Organization [facility] Address [address] [facility] [place] [address] Phone [phone] Care Team Providers Care Animal Care Taker Name Role Phone Patrick Sanchez Primary Care Provider Reason for Visit * Reason Comments Return Visit Encounter Details Date Type Department Care Team Description 04/01/2023 Office Visit Gynecology/Obstetrics [facility] [address] [place] [address] Linette High CRNP [address] [place] [address] Supervision of normal first , antepartum*; Rh negative status during in second trimester Allergies Active Allergy Reactions Severity Noted Date Comments Ciprofloxacin Hives 09/24/2016 Sulfa Antibiotics Hives Low 09/24/2016 documented as of this encounter (statuses as of 04/01/2023) Medications Medication Sig Dispensed Refills Start Date End Date Status 19 29-1 MG Oral Tablet Chewable Take by mouth. 0 Activ e documented as of this encounter (statuses as of 04/01/2023) Active Problems Problem Noted Date Rh negative status during 11/08 Supervision of normal first , a ntepartum 11/26/2022 Estimated Date of Delivery Comme nts Yes 06/28/2023 Based on last me nstrual period of 09/21/2022 documented as of this encounter (statuses as of 04/01/2023) Resolved Problems Problem Noted Date Resolved Date Umbilical cord cyst during , antepartum 12/29/2022 04/01/2023 Last Assessment & Plan: Resolved at prior u/s. Low risk NIPT and msAFP appreciated. documented as of this encounter (statuses as of 04/01/2023) Immunizations Name Administration Dates Next Due COVID-19 [...] Sign Reading Time Taken Comments Blood Pressure 102/60 04/01/2023 9:11 AM EDT Pulse - - Temperature - - Respiratory Rate - - Oxygen Saturation - - Inhaled Oxygen Concentration - - Weight 78 kg (172 lb) 04/01/2023 9:11 AM EDT Height - - Body Mass Index 26.94 02/24/2023 7:50 AM EDT documented in this encounter Progress Notes * Rae Mujica LPN - 04/01/2023 9:09 AM EDT 27w3d Denies vaginal bleeding/rom + movement Doing labs for next visit Wants tdap and rhogam at that time * SURI Patel - 04/01/2023 9:09 AM EDT 27w 3d + movement, discussed [facility] and to call if <10 in 2 hrs. No ctx, bleeding, leaking. Has lab orders, T&S added. Pt plans to complete these in [place], where she works, and wishes to get Tdap and RhoGAM after 28 weeks. Encouraged [employer] classes & hospital tour. 2 week return SURI Patton documented in this encounter Plan of Treatment Upcoming Encounters Date Type Specialty Care Team Description 04/16/2023 Office Visit Gynecology Obstetrics Linette High CRNP [address] [place] [address] 05/05/2023 Office Visit Gynecology Obstetrics Elsy Shafer MD [address] [place] [address] [place] [address] 05/18/2023 Office Visit Gynecology Obstetrics Jonathan Buckley MD [address] [place] [address] 06/02/2023 Office Visit Gynecology Obstetrics Katie Scales CRNP [address] [place] [address] 06/11/2023 Office Visit Gynecology Obstetrics Katie Scales CRNP [address] [place] [address] 06/16/2023 Office Visit Gynecology Obstetrics Jonathan Buckley MD [address] [place] [address] 06/23/2023 Office Visit Gynecology Obstetrics Linette High CRNP [address] [place] [address] 06/28/2023 Office Visit Gynecology Obstetrics Raven Abarca, [facility] [address] [place] [address] Scheduled Orders Name Type Priority Associated Diagnoses Orde r Schedule TYPE AND SCREEN Lab Routine Rh negative status during in second trimester Expected: 04/01/2023 (Approximate), Expires: 05/02/2024 Health Maintenance Due Date Last Done Comments [...] Rh negative status during in second trimester documented in this encounter Care Teams Animal Care Taker Relationship Specialty Start Date End Date Patrick Sanchez DO [address] [place] [address] PCP - General Family Medicine 07/28/21 documented as of this encounter
--- OUTSIDE RECORDS SUMMARY | 2023-07-09 08:11 | External Medical Summary | Summary of Care ---
Author Name Unknown Organization [facility] Address [address] [place] [address] Phone [phone] Care Team Providers Care Applications Architect Name Role Phone Sanchez Patrick Belledrew Primary Care Provider Reason for Visit * Reason Comments Outpatient Testing Encounter Details Date Type Department Care Team Description 04/06/2023 Laboratory Laboratory, [place] [address] [place] [address] [facility] [address] [place] [address] Supervision of normal first , antepartum; Rh negative status during in second trimester Allergies Active Allergy Reactions Severity Noted Date Comments Ciprofloxacin Hives 09/24/2016 Sulfa Antibiotics Hives Low 09/24/2016 documented as of this encounter (statuses as of 04/06/2023) Medications Medication Sig Dispensed Refills Start Date End Date Status -1 MG Oral Tablet Chewable Take by mouth. 0 Activ e documented as of this encounter (statuses as of 04/06/2023) Active Problems Problem Noted Date Rh negative status during 11/08 Supervision of normal first , a ntepartum 11/26/2022 Estimated Date of Delivery Comme nts Yes 06/28/2023 Based on last me nstrual period of 09/21/2022 documented as of this encounter (statuses as of 04/06/2023) Resolved Problems Problem Noted Date Resolved Date Umbilical cord cyst during , antepartum 12/29/2022 04/01/2023 Last Assessment & Plan: Resolved at prior u/s. Low risk NIPT and msAFP appreciated. documented as of this encounter (statuses as of 04/06/2023) Immunizations Name Administration Dates Next Due COVID-19 [...] Obstetrics Linette High CRNP [address] [place] [address] 05/05/2023 Office Visit Gynecology Obstetrics Elsy Shafer MD [address] [place] [address] 06/02/2023 Office Visit Gynecology Obstetrics Katie Scales CRNP [address] [place] [address] 06/11/2023 Office Visit Gynecology Obstetrics Katie Scales CRNP [address] [place] [address] 06/16/2023 Office Visit Gynecology Obstetrics Jonathan Buckley MD [address] [place] [address] 06/23/2023 Office Visit Gynecology Obstetrics Linette High CRNP [address] [place] [address] 06/28/2023 Office Visit Gynecology Obstetrics Raven Abarca CNM [address] [place] [address] Pending Results Name Type Priority Associated Diagnoses Date /Time 50-G GESTATIONAL GLUCOSE, 1 HOUR Lab Routine Supervision of normal first , antepartum 04/06/2023 12:07 PM EDT CBC WITH WBC DIFFERENTIAL AND ANEMIA REFLEX WORKUP Lab Routine Supervision of normal first , antepartum 04/06/2023 12:07 PM EDT SYPHILIS ANTIBODY SCREEN WITH REFLEX TO RPR Lab Routine Supervision of normal first , antepartum 04/06/2023 12:07 PM EDT TYPE AND SCREEN Lab Routine Rh negative status during in second trimester 04/06/2023 12:07 PM EDT ANEMIA CBC Lab Routine Supervision of normal first , antepartum 04/06/2023 12:07 PM EDT DIFFERENTIAL, AUTOMATED Lab Routine Supervision of normal first , antepartum 04/06/2023 12:07 PM EDT ANEMIA REFLEX CHEMISTRY HOLD Lab Routine Supervision of normal first , antepartum 04/06/2023 12:07 PM EDT SYPHILIS ANTIBODY SCREEN Lab Routine Supervision of normal first , antepartum 04/06/2023 12:07 PM EDT Health Maintenance Due Date Last Done [...] Diagnoses Diagnosis Supervision of normal first , antepartum Rh negative status during in second trimester documented in this encounter Care Teams Applications Architect Relationship Specialty Start Date End Date Patrick Sanchez DO [address] [place] [address] PCP - General Family Medicine 07/28/21 documented as of this encounter
--- OUTSIDE RECORDS SUMMARY | 2023-07-09 08:11 | External Medical Summary | Summary of Care ---
Author Name Unknown Organization [facility] Address [address] [facility] [place] [address] Phone [phone] Care Team Providers Care Crisis Clinician Name Role Phone Daniel Patrick Sinclair DO Primary Care Provider Reason for Visit * Reason Comments Return Visit Encounter Details Date Type Department Care Team Description 04/16/2023 Office Visit Gynecology/Obstetric s David Walton [address] [place] [address] Linette High CRNP [address] [facility] [place] [address] Supervision of normal first , antepartum*; Rh negative status during in third trimester; Need for prophylactic vaccination with combined invzounpvx-igrkvja-tnrj ussis (DTP) vaccine; Need for prophylactic immunotherapy [...] Gynecology Obstetrics Elsy Shafer MD [address] [place] [address] 05/18/2023 Office Visit Gynecology Obstetrics Elsy Shafer MD [address] [place] [address] 06/02/2023 Office Visit Gynecology Obstetrics Katie Scales CRNP [address] [place] [address] 06/11/2023 Office Visit Gynecology Obstetrics Katie Scales CRNP [address] [place] [address] 06/16/2023 Office Visit Gynecology Obstetrics Jonathan Buckley MD [address] [place] [address] 06/23/2023 Office Visit Gynecology Obstetrics Linette High CRNP [address] [place] [address] 06/28/2023 Office Visit Gynecology Obstetrics Raven Abarca CNM [address] [place] [address] Health Maintenance Due Date Last Done Comments [...] trimester Need for prophylactic vaccination with combined qpeyzmxmma-aitogir-feotursoz (DTP) vaccine Need for prophylactic immunotherapy documented [...] Right documented in this encounter Care Teams Crisis Clinician Relationship Specialty Start Date End Date Patrick Sanchez DO [address] [place] [address] PCP - General Family Medicine 07/28/21 documented as of this encounter
--- OUTSIDE RECORDS SUMMARY | 2023-07-09 08:11 | External Medical Summary | Summary of Care ---
Author Name Unknown Organization [facility] Address [address] [facility] [place] [address] Phone [phone] Care Team Providers Care Payment Poster Name Role Phone Mushtaq Sanchezjaspreet Belledrew Primary Care Provider Reason for Visit * Reason Comments Return Visit Encounter Details Date Type Department Care Team Description 02/24/2023 Office Visit Gynecology/Obstetrics [facility] [address] [place] [address] Katie Scales CRNP [address] [place] [address] Supervision of normal first , antepartum*; Rh [...] LOF. Reviewed glucola, packet given. Works at [employer], plans to complete there sometime after her next appt. SURI Melgoza documented in this encounter Nursing Notes * JACKLYN Alarcon - 02/24/2023 7:56 AM EDT 22w2d Pt denies any concerns, 28wk packet provided. documented in this encounter Plan of Treatment Upcoming Encounters Date Type Specialty Care Team Description 04/01/2023 Office Visit Gynecology Obstetrics Linette High CRNP [address] [place] [address] 04/16/2023 Office Visit Gynecology Obstetrics Linette High CRNP [address] [place] [address] 05/05/2023 Office Visit Gynecology Obstetrics Elsy Shafer MD [address] [place] [address] [place] [address] 05/18/2023 Office Visit Gynecology Obstetrics Jonathan Buckley MD [address] [place] [address] 06/02/2023 Office Visit Gynecology Obstetrics Katie Scales CRNP [address] [place] [address] 06/11/2023 Office Visit Gynecology Obstetrics Katie Scales CRNP [address] [place] [address] 06/16/2023 Office Visit Gynecology Obstetrics Jonathan Buckley MD [address] [place], [place] [address] 06/23/2023 Office Visit Gynecology Obstetrics Linette High CRNP [address] [place] [address] 06/28/2023 Office Visit Gynecology Obstetrics Raven Abarca, [facility] [address] [facility] [place] [address] Scheduled Orders Name Type Priority Associated Diagnoses [...] antepartum documented in this encounter Care Teams Payment Poster Relationship Specialty Start Date End Date Patrick Sanchez DO [address] [place] [address] PCP - General Family Medicine 07/28/21 documented as of this encounter
--- OUTSIDE RECORDS SUMMARY | 2023-07-09 08:11 | External Medical Summary | Summary of Care ---
Author Name Unknown Organization [facility] Address [address] [facility] [place] [address] Phone [phone] Care Team Providers Care Cutter Out Name Role Phone Patrick Sanchez Primary Care Provider Reason for Visit * Reason Comments Return Visit Encounter Details Date Type Department Care Team (Late st Contact Info) Description 06/02/2023 8:00 AM EDT Office Visit Gynecology/Obstetric s David Walton [address] [place] [address] Katie Scales CRNP [address] [place] [address] Supervision of normal first , antepartum*; Rh [...] mRNA, LNP-s, No Pre serve, 2-Dose Series ([employer]) 05/27/2021,08/18/2020,07/28/2020 Hepatitis B, 0-19 yrs 08/10/1996,1995,10/08 IPV [...] have money to get more. Patient refused Hammond Depression Scale Answer Date Recorded Hammond Depression Scale Total 0 05/05/2023 The thought [...] last visit, no side effects. GBS today. Rail Project Engineer Documentation Provider requested plastic process technician. Name of plastic process technician: Genna * Genna Bach LPN - 06/02/2023 8:05 AM EDT 36w2d GBS today, pt denies any concerns. documented in this encounter Plan of Treatment Upcoming Encounters Date Type Department Care Team (Late st Contact Info) Description 06/11/2023 8:30 AM EDT Office Visit Gynecology/Obstetrics [facility] [address] [place] [address] Katie Scales CRNP [address] [place] [address] 06/16/2023 8:45 AM EST Office Visit Gynecology/Obstetrics [facility] [address] [place] [address] Jonathan Buckley MD [address] [place] [address] 06/23/2023 8:30 AM EST Office Visit Gynecology/Obstetrics [facility] [address] [place] [address] Linette High CRNP [address] [place] [address] 06/28/2023 9:30 AM EST Office Visit Gynecology/Obstetrics [facility] [address] [place] [address] Raven Abarca, [address], [place] [address] 07/19/2023 10:30 AM EST Telemedicine Gynecology/Obstetrics [facility] [address] [place] [address] Linette High CRNP [address] [place] [address] 08/10/2023 10:30 AM EST Office Visit Gynecology/Obstetrics [facility] [address] [place] [address] Linette High CRNP [address] [place] [address] Pending Results Name Type Priority Associated Diagnoses [...] trimester documented in this encounter Care Teams Cutter Out Relationship Specialty Start Date End Date Patrick Sanchez DO [address] [place] [address] PCP - General Family Medicine 07/28/21 documented as of this encounter
--- OUTSIDE RECORDS SUMMARY | 2023-07-09 08:11 | External Medical Summary | Summary of Care ---
Author Name Unknown Organization [facility] Address [address] [facility] [address] Phone [phone] Care Team Providers Care Market Research Senior Project Manager Name Role Phone Patrick Sanchez Primary Care Provider Reason for Visit * Reason Comments Return Visit Encounter Details Date Type Department Care Team Description 05/18/2023 Office Visit Gynecology/Obstetrics [facility] [address] [facility] [place] [address] Elsy Shafer MD [address] [place] [address] 34 weeks gestation of [...] it today. Currently unsure of billing through [employer], andis in stock at [employer] on [facility]. Prescription was sent for patient to [employer] [facility] for position check ordered today RTC 2 weeks Jeffry Shafer MD PhD * Willa Sheth LPN - 05/18/2023 8:35 AM EDT 34w1d Denies concerns. Requests breast pump be submitted to [employer]. documented in this encounter Plan of Treatment Upcoming Encounters Date Type Specialty Care Team Description 05/18/2023 Imaging Radiology 06/02/2023 Office Visit Gynecology Obstetrics McHail, Katie L, ALARM INVESTIGATOR [address] [place] [address] 06/11/2023 Office Visit Gynecology Obstetrics Katie Scales CRNP [address] [place] [address] 06/16/2023 Office Visit Gynecology Obstetrics Jonathan Buckley MD [address] [place] [address] 06/23/2023 Office Visit Gynecology Obstetrics Back[employer] crews CRNP [address] [place] [address] 06/28/2023 Office Visit Gynecology Obstetrics Raven Abarca, [facility] [address] 07/19/2023 [facility] [address] [place] [address] 08/10/2023 Office [facility] [address] [place] [address] Scheduled Orders Name Type Priority Associated Diagnoses [...] antepartum documented in this encounter Care Teams Market Research Senior Project Manager Relationship Specialty Start Date End Date Patrick Sanchez DO [address] [place] [address] PCP - General Family Medicine 07/28/21 documented as of this encounter
--- OUTSIDE RECORDS SUMMARY | 2023-07-09 08:11 | External Medical Summary ---
Author Name Unknown Address Unknown Organization K01:[facility] - [address] [place] [address] Laboratory Report Ordering Provider Test Date Status ARTUR MCKAY 04/06/2023 12:07:03 Final Observation Date Value Abnormality Reference (Units ) Status SYNC LEUKOCYTES IN BLOOD BY AUTOMATED COUNT 04/06/2023 12:07:03 9.42 4.00-10.80 (K/uL) Final Segs 04/06/2023 12:07:03 75.6 Above high normal 40.0-75.0 (%) Final Lymphs % 04/06/2023 12:07:03 16.6 Below low normal 18.0-42.0 (%) Final Monos 04/06/2023 12:07:03 5.7 1.0-11.0 (%) Final Eosinophils 04/06/2023 12:07:03 1.1 0.0-6.0 (%) Final Basos 04/06/2023 12:07:03 0.6 0.0-2.0 (%) Final Immature Granulocyte, Percent 04/06/2023 12:07:03 0.4 0.0-2.0 (%) Final Absolute Segs 04/06/2023 12:07:03 7.12 1.80-7.70 (K/uL) Final Lymphs, absolute 04/06/2023 12:07:03 1.56 1.00-4.80 (K/ul) Final Monos, Abs 04/06/2023 12:07:03 0.54 0.00-1.10 (K/uL) Final Eos, Abs 04/06/2023 12:07:03 0.10 0.00-0.70 (K/uL) Final Basos, Abs 04/06/2023 12:07:03 0.06 0.00-0.20 (K/uL) Final Immature Granulocytes, Number 04/06/2023 12:07:03 0.04 0.00-0.20 (K/uL) Final Performing Location [facility] [address] [facility] [address]
--- OUTSIDE RECORDS SUMMARY | 2023-07-09 08:11 | External Medical Summary ---
Author Name Unknown Address Unknown Organization [id number]:LABORATORY [facility] [place] - [address] [place] [address] Laboratory Report Ordering Provider Test Date Status ARTUR MCKAY 04/06/2023 12:07:03 Final Observation Date Value Abnormality Reference (Units ) Status Treponema pallidum Ab [Presence] in Serum by Immunoassay 04/06/2023 12:07:03 Nonreactive Nonreactive Final No serologic evidence of syp hilis. No additional testing clinicially indicated at this time. Consider repeat testing in 2-4 weeks if acute or primary syphilis is suspected. Performing Location LABORATORY [facility] [place] - [address] [place] [address]
--- OUTSIDE RECORDS SUMMARY | 2023-07-09 08:12 | External Medical Summary | Summary of Care ---
Author Name Unknown Organization [facility] Address [address] [place] [address] Phone [phone] Care Team Providers Care Shipping Receiving Manager Name Role Phone Patrick Sanchez Primary Care Provider Encounter Details Date Type Department Care Team Description 02/05/2023 Office Visit Paste Mixing Supervisor [facility] [address] [place] [address] [address] [place], [place] [id number] Malu Canales, DO [address] [place] [address] Umbilical cord cyst during , antepartum*; Encounter for anatomic survey Allergies Active Allergy Reactions Severity Noted Date Comments Ciprofloxacin Hives 09/24/2016 Sulfa Antibiotics Hives Low 09/24/2016 documented as of this encounter (statuses as of 02/05/2023) Medications Medication Sig Dispensed Refills Start Date End Date Status 19 29-1 MG Oral Tablet Chewable Take by mouth. 0 Activ e documented as of this encounter (statuses as of 02/05/2023) Active Problems Problem Noted Date Umbilical cord [...] as of this encounter (statuses as of 02/05/2023) Immunizations Name Administration Dates Next Due COVID-19 [...] on file documented as of this encounter Progress Notes * Malu Morales, DO - 02/05/2023 8:40 AM EDT MATERNAL MEDICINE VISIT Prema Martel presented today at 19w4d for an ultrasound and follow-up of her high risk . She was seen for the following indications: Problem List Items Addressed This Visit Other Umbilical cord cyst during , antepartum - Primary Resolved at prior u/s. Low risk NIPT and msAFP appreciated. Other Visit Diagnoses Encounter for anatomic survey We reviewed today's ultrasound findings. 19w4d for anatomical survey. Normal growth with no ultrasonic evidence of structural abnormalities. (For full details, please refer to ultrasound report provided separately). Ms. Martel's questions were answered to her satisfaction. She was advised to contact our office orher OB provider for any additional questions regarding her . RECOMMENDATIONS: Follow up with MFM for ultrasound as clinically indicated. Thank you for allowing us to participate in the care of this patient. Please call with any questions. Malu Canales DO 02/05/2023 8:40 AM documented in this encounter Miscellaneous Notes * Assessment & Plan Note - Malu Morales DO - 02/05/2023 8:08 AM EDT Associated Problem(s): Umbilical cord cyst during , antepartum Resolved at prior u/s. Low risk NIPT and msAFP appreciated. documented in this encounter Plan of Treatment Upcoming Encounters Date Type Specialty Care Team Description 02/24/2023 Office Visit Gynecology Obstetrics Katie Scales CRNP [address] [place] [address] 04/01/2023 Office Visit Gynecology Obstetrics Linette High CRNP [address] [place] [address] 04/16/2023 Office Visit Gynecology Obstetrics Linette High CRNP [address] [place] [address] 05/05/2023 Office Visit Gynecology Obstetrics Elsy Shafer MD [address] [place] [address] [place] [address] 05/18/2023 Office Visit Gynecology Obstetrics Jonathan Bcukley MD [address] [place] [address] 06/02/2023 Office Visit Gynecology Obstetrics Katie Scales CRNP [address] [place] [address] 06/11/2023 Office Visit Gynecology Obstetrics Katie Scales CRNP [address] [place] [address] 06/16/2023 Office Visit Gynecology Obstetrics Jonathan Buckley MD [address] [place] [address] 06/23/2023 Office Visit Gynecology Obstetrics Linette High CRNP [address] [place] [address] 06/28/2023 Office Visit Gynecology Obstetrics Raven Abarca, [facility] [address] [facility] [place] [address] Scheduled Orders Name Type Priority Associated Diagnoses Orde r Schedule [facility] PREG FOLLOW UP EACH FETUS Medical Imaging Routine Umbilical cord cyst during , antepartum Encounter for anatomic survey 3 Occurrences starting 02/05/2023 until 08/07/2023 Health Maintenance Due Date Last Done Comments Depression Screening, Annual for Pts 12 and Over 2007 COVID-19 Vaccine (4 - Pfizer series) 07/22/2021 05/27/2021, 08/18/2020, 07/28/2020 Pap Smear 11/26/2025 11/26/2022 DTaP,Tdap,and Td Vaccines (3 - Td or Tdap) 02/24/2032 02/23/2022, 08/05/2016 Hepatitis B Completed 08/10/1996, 1995, 1995 Influenza Vaccine (FLU shot) Completed , 05/14/2021 Gonorrhea / Chlamydia Screen Discontinued 11/26/2022 Hepatitis [...] as of this encounter Visit Diagnoses Diagnosis Umbilical cord cyst during , antepartum- Primary Encounter for anatomic survey documented in this encounter Care Teams Shipping Receiving Manager Relationship Specialty Start Date End Date Patrick Sanchez DO [address] [place] [address] PCP - General Family Medicine 07/28/21 documented as of this encounter
--- OUTSIDE RECORDS SUMMARY | 2023-07-09 08:12 | External Medical Summary ---
Author Name Unknown Address Unknown Organization : Laboratory Report Ordering Provider Test Date Status CHARO YUN 01/13/2023 12:36:40 Final Observation Date Value Abnormality Reference (Units ) Status NUMBER OF FETUSES? 01/13/2023 12:36:40 1 Final ADVANCED MATERNAL AGE? 01/13/2023 12:36:40 NO Final ABNORMAL PAOLA? 01/13/2023 12:36:40 NO Final ABNORMAL US? 01/13/2023 12:36:40 SEE BELOW Final UMBILICAL CORD CYST PERSONAL/FAM HISTORY? 01/13/2023 12:36:40 NO Final INTERPRETATION 01/13/2023 12:36:40 SEE BELOW Final This specimen showed an expe cted representation of
chromosome 21, 18, and 13 material. Results were
not analyzed or reported for microdeletions. See
'Limitations' below. TRISOMY 21 (T21) 01/13/2023 12:36:40 Negative Final TRISOMY 18 (T18) 01/13/2023 12:36:40 Negative Final TRISOMY 13 (T13) 01/13/2023 12:36:40 Negative Final Y CHROMOSOME 01/13/2023 12:36:40 Opted Out Final Y CHR. INTERPRETATION 01/13/2023 12:36:40 SEE BELOW Final sex determination was not included in this
testing. SEX CHROMOSOME 01/13/2023 12:36:40 No aneuploidy Final SEX CHROMOSOME INTERP 01/13/2023 12:36:40 SEE BELOW Final No apparent abnormality was detected. See
'Limitations' below. MICRODELETION 01/13/2023 12:36:40 Opted Out Final MICRODELETION INTERP 01/13/2023 12:36:40 SEE BELOW Final Results were not analyzed or reported for
microdeletions. GESTATIONAL AGE (IN WEEKS) 01/13/2023 12:36:40 16 Final GESTATIONAL AGE (IN DAYS) 01/13/2023 12:36:40 2 Final FRACTION 01/13/2023 12:36:40 24.30% Final LABORATORY COMMENTS 01/13/2023 12:36:40 SEE BELOW Final Laboratory results and submi tted clinical
information reviewed by Amber Rossi, Ph.D.,
[facility], [facility]. LIMITATIONS 01/13/2023 12:36:40 SEE BELOW Final QNatal(R) Advanced is a cell -free DNA test that
screens for increased risk of certain
chromosomal abnormalities that may cause
defects, including Trisomy 21 (Down syndrome),
Trisomy 18, Trisomy 13, and certain sex chromosome
abnormalities (i.e., 45,X, 47,XXY, 47,XXX, and
47,XYY), as well as sex. In addition, if
selected as an option, QNatal(R) Advanced can
screen for certain microdeletions (i.e., 22q, 5p,
1p36, 15q, 11q, 8q, and 4p) that may cause
defects. This test does not assess the risk of
abnormalities such as neural tube defects or
ventral wall defects and should not be considered
in isolation from other clinical findings and
laboratory test results. QNatal(R) Advanced has
been validated in pregnancies that are equal to or
greater than 10 weeks gestational age.
QNatal(R) Advanced has been validated in gordon
pregnancies for the trisomies and sex chromosome
abnormalities listed above, as well as for
microdeletions, and for the determination of
sex. Sex chromosome aneuploidy analysis is only
performed in gordon pregnancies. The test has
also been validated in twin pregnancies for the
trisomies listed above and for microdeletions, but
not for the sex chromosome abnormalities due to
limited data. The test has not been validated in
higher order pregnancies (more than two) because
limited data is available.
Microdeletion screening is limited to the
specified microdeletion regions (see
'Methodology'). The Y chromosome is analyzed for
the determination of sex. The sensitivity
and specificity of sex determination
analysis may be less than that of the Trisomy 21,
18, and 13 analysis and this determination can be
confounded by vanishing twin syndrome in
pregnancies that were originally multiple
gestation pregnancies. It should be noted that
QNatal(R) Advanced is a quantitative analysis of
maternal and placental cfDNA. As a result, the
accuracy of the screening test results may be
affected by the presence of chromosome
abnormalities or microdeletions that are maternal
or confined placental in origin. An incidental
finding may be reported when the finding precludes
categorizing a targeted condition or indicates a
maternal condition. False positive findings
involving the examined chromosomes and
microdeletion regions may be due to maternal,
placental, or mosaicism, by vanishing twin
syndrome, or other unexplained causes. SPECIFICATIONS 01/13/2023 12:36:40 SEE BELOW Final Sensitivity Specificity
T21 >99.9% >99.9%
T18 >99.9% >99.9%
T13 >99.9% >99.9%
Accuracy
Y >99.9%
Performance of the QNatal Advanced
laboratory-developed test (LDT) has been
determined based on internal analytical
assessment. METHODOLOGY 01/13/2023 12:36:40 SEE BELOW Final Circulating cell-free (cf) D NA was isolated from
plasma followed by detection on a massively
parallel sequencing platform. Bioinformatic
analysis was performed to determine the
representation of chromosomes 21, 18, 13, X and Y
in circulating cell-free DNA. The representation
of sequences from the critical regions involved in
1p36 microdeletion syndrome (1p36),
Vela-Hirschhorn syndrome (4p), Cri-du-chat
syndrome (5p), Marli-Giedion syndrome (8p),
Arslan syndrome (11q), Prader Willi
syndrome/Angelman syndrome (15q), and DiGeorge
syndrome (22q) is evaluated for the detection of
microdeletions if requested. This test was
developed, and its performance characteristics
have been determined by [employer]
[facility]. It has not been
cleared or approved by the U.S. Food and Drug
Administration. Performance characteristics refer
to the analytical performance of the test. This
test is performed pursuant to a license agreement
with [employer].
This test was developed and its analytical
performance characteristics have been determined
by [facility]. It has not been cleared or approved by
FDA. This assay has been validated pursuant to the
CLIA regulations and is used for clinical
purposes.
Test performed by [employer]
[address] [facility]
[place] [address]

Gelatin Powder Mixer: Milka Saxena MD,PHD,GABINO
Test Reported by [facility],
[facility],
[address] [place], [place]
Ciaran Hoover M.D., Ph.D., Director of Laboratories
, CLIA [id number] Performing Location
--- OUTSIDE RECORDS SUMMARY | 2023-07-09 08:12 | External Medical Summary | Summary of Care ---
Author Name Unknown Organization [facility] Address [address] [place] [address] Phone [phone] Care Team Providers Care Hole Digger Truck Driver Name Role Phone Patrick Sanchez Primary Care Provider Encounter Details Date Type Department Care Team Description 02/05/2023 Office Visit Vacuum Cleaner Assembler [facility] [address] [place] [address] Dr [address] [place], [place] [id number] Malu Canales, DO [address] [place] [address] Umbilical cord cyst during , [...] Scales CRNP [address] [place] [address] 04/01/2023 Office Visit Gynecology Obstetrics Linette High CRNP [address] [place] [address] 04/16/2023 Office Visit Gynecology Obstetrics Linette High CRNP [address] [place] [address] 05/05/2023 Office Visit Gynecology Obstetrics Elsy Shafer MD [address] [place] [address] [place] [address] 05/18/2023 Office Visit Gynecology Obstetrics Jonathan Buckley MD [address] [place] [address] 06/02/2023 Office Visit Gynecology Obstetrics Katie Scales CRNP [address] [place] [address] 06/11/2023 Office Visit Gynecology Obstetrics Katie Scales CRNP [address] [place] [address] 06/16/2023 Office Visit Gynecology Obstetrics Jonathan Buckley MD [address] [place] [address] 06/23/2023 Office Visit Gynecology Obstetrics Linette High CRNP [address] [place] [address] 06/28/2023 Office Visit Gynecology Obstetrics Raven Abarca, [facility] [address] [facility] [place] [address] Scheduled Orders Name Type Priority Associated Diagnoses Orde r Schedule [facility] PREG FOLLOW UP EACH FETUS Medical Imaging [...] survey documented in this encounter Care Teams Hole Digger Truck Driver Relationship Specialty Start Date End Date Patrick Sanchez DO [address] [place] [address] PCP - General Family Medicine 07/28/21 documented as of this encounter
--- OUTSIDE RECORDS SUMMARY | 2023-07-09 08:12 | External Medical Summary ---
Author Name Unknown Address Unknown Organization K01:[facility] - [address] [facility] [address] [place] [address] Laboratory Report Ordering Provider Test Date Status MAGNOLIA FLOWER 01/14/2023 11:17:00 Final Observation Date Value Abnormality Reference (Units ) Status Triglyceride 01/14/2023 11:17:00 76 <=174 ( mg/dL) Final Triglyceride Reference Range s (mg/dL):
<150 Acceptable
150-174 Borderline high
175-499 High
>=500 Very high Cholesterol 01/14/2023 11:17:00 171 <200 (mg /dL) Final Total Cholesterol Reference Ranges (mg/dL):
<200 Desirable
200-239 Borderline high
>=240 High HDL 01/14/2023 11:17:00 85 >49 (mg/dL ) Final HDL Cholesterol Reference Ra nges (mg/dL):
>=60 High (Desirable)
<50 Low (Undesirable) For Females
<40 Low (Undesirable) For Males NON-HDL CHOLESTEROL 01/14/2023 11:17:00 86 <=159 (mg/dL) Final Non-HDL Cholesterol Referenc e Range (mg/dL):
<100 Target level for high risk ASCVD patient
<130 Optimal for general population
130-159 Near optimal for general population
160-189 Borderline High
190-219 High
>=220 Very High LDL, (calculated) 01/14/2023 11:17:00 71 <= 129 (mg/dL) Final LDL Cholesterol Reference Ra nges (mg/dL):
<70 Target level for high risk ASCVD patient
<100 Optimal for general population
100-129 Near optimal for general population
130-159 Borderline high
160-189 High
>=190 Very high Performing Location LABORATORY [facility] [place] - [address] [facility] [place] [address]
--- OUTSIDE RECORDS SUMMARY | 2023-07-09 08:12 | External Medical Summary ---
Author Name Unknown Address Unknown Organization K01:LABORATORY [facility] [place] - [address] [place] [address] Laboratory Report Ordering Provider Test Date Status MAGNOLIA FLOWER 01/14/2023 11:17:00 Final Observation Date Value Abnormality Reference (Units ) Status HbA1C 01/14/2023 11:17:00 4.4 4.0-5.6 (% ) Final The use of HbA1c to monitor glycemic status is based on normal hemoglobin and HbA composition. This test should not be used in patients with abnormal hemoglobin that affects the half life of the red blood cell or the in vivo glycation rates. Glucose, estimated average 01/14/2023 11:17:00 80 <126 (mg/dL) Final Performing Location LABORATORY [facility] [place] - [address] [place] [address]
--- OUTSIDE RECORDS SUMMARY | 2023-07-09 08:12 | External Medical Summary | Summary of Care ---
Author Name Unknown Organization [facility] Address [address] [place] [address] Phone [phone] Care Team Providers Care Hydroelectric Plant Structural Engineer Name Role Phone Daniel Patrick Sinclair DO Primary Care Provider Reason for Visit * Reason Comments Outpatient Testing Encounter Details Date Type Department Care Team Description 01/13/2023 Laboratory Laboratory, [place] [address] [place] [address] [facility] [address] [place] [address] Supervision of normal first , antepartum Allergies Active Allergy Reactions Severity Noted Date Comments Ciprofloxacin Hives 09/24/2016 Sulfa Antibiotics Hives Low 09/24/2016 documented as of this encounter (statuses as of 01/13/2023) Medications Medication Sig Dispensed Refills Start Date End Date Status 19 29-1 MG Oral Tablet Chewable Take by mouth. 0 Activ e documented as of this encounter (statuses as of 01/13/2023) Active Problems Problem Noted Date Umbilical cord cyst during , an tepartum 12/29/2022 Last Assessment & Plan: I reviewed the ultrasound with her. On today's ultrasound, there is no umbilical cord cyst present. The anatomy is appropriate for the gestational age. I did review with her the ultrasound that she had November 25. I told her that there may have been a small umbilical cord cyst that was present on that ultrasound. She does understand that it is common for umbilical cord cyst diagnosed in the 1st trimester to spontaneously regress. We will bring her back in 5 weeks for an evaluation of anatomy. Rh negative status during 11/08 Supervision of normal first , a ntepartum 11/26/2022 Estimated Date of Delivery Comme nts Yes 06/28/2023 Based on last me nstrual period of 09/21/2022 documented as of this encounter (statuses as of 01/13/2023) Immunizations Name Administration Dates Next Due COVID-19 mRNA, LNP-s, No Pre serve, 2-Dose Series (VirtualU) 05/27/2021,08/18/2020,07/28/2020 Hepatitis B, 0-19 yrs 08/10/1996,1995,10/08 IPV [...] Encounters Date Type Specialty Care Team Description 02/02/2023 Office Visit Gynecology Obstetrics Katie Scales CRNP [address] [place] [address] 02/05/2023 Office Visit Maternal Medicine [facility] Malu Garcia, DO [address] [place] [address] 02/05/2023 Imaging Radiology 02/24/2023 Office Visit Gynecology Obstetrics Katie Scales CRNP [address] [place] [address] 04/01/2023 Office Visit Gynecology Obstetrics BackerLinette CRNP [address] [place] [address] Pending Results Name Type Priority Associated Diagnoses Date /Time QNATAL ADVANCED (QUEST) Lab Routine Supervision of normal first , antepartum 01/13/2023 12:36 PM EDT MATERNAL SERUM AFP Lab Routine Supervision of normal first , antepartum 01/13/2023 12:36 PM EDT Health Maintenance Due Date Last Done Comments Depression Screening, Annual for Pts 12 and Over 2007 COVID-19 Vaccine (4 - Booste r for Pfizer series) 07/22/2021 05/27/2021, 08/18/2020, 07/28/2020 Pap [...] Diagnosis Supervision of normal first , antepartum documented in this encounter Care Teams Hydroelectric Plant Structural Engineer Relationship Specialty Start Date End Date Patrick Sanchez DO [address] [place] [address] PCP - General Family Medicine 07/28/21 documented as of this encounter
--- OUTSIDE RECORDS SUMMARY | 2023-07-09 08:12 | External Medical Summary ---
Author Name Unknown Address Unknown Organization : Laboratory Report Ordering Provider Test Date Status JAMABACKJEFF 01/13/2023 12:36:40 Final Observation Date Value Abnormality Reference (Units ) Status INTERPRETATION 01/13/2023 12:36:40 SEE BELOW Final Screen negative for open NTD . RISK FOR ONTD 01/13/2023 12:36:40 <1:5000 Final CALC'D GESTATIONAL AGE 0601/13/2023 12:36:40 16.3 Final AFP, SERUM 01/13/2023 12:36:40 36.9 (ng/mL) Final AFP MOM 01/13/2023 12:36:40 1.07 Final Reference Range:
NTD <2 .50
IDD <1.90
TWINS <4.00
TWINS IDD <3.50
TRIPLETS <4.50
The AFP test result indicates that this patient is
screen negative for open NTD. It should be noted
that normal test results can never guarantee the
of a normal baby and that 2-3% of newborns
have some type of physical or mental defect, many
of which are undetectable through any known
diagnostic technique.
This is a screening test, not a diagnostic test.
This risk assessment report is based in part on
demographic data provided by the ordering
physician. Please notify the laboratory promptly
if any data are incorrect. For assistance with
recalculations, please call your local [facility] laboratory. For assistance with
interpretation of these results, please contact
your Local [facility] genetic counselor or
call [phone] ([phone]).
Interpretive Cutoffs
Screen Positive for Open NTD:
> or = 2.50 adjusted MOM
> or = 1.90 adjusted MOM for insulin- dependent diabetics
> or = 4.00 adjusted MOM for twins
> or = 3.50 adjusted MOM for twins insulin-dependent diabetics
> or = 4.50 adjusted MOM for triplets
For additional information, please refer to
[email or web address]
(This link is being provided for
informational/educational purposes only.) DATE OF 01/13/2023 12:36:40 1995 Final COLLECTION DATE 01/13/2023 12:36:40 01/13/2023 Final MATERNAL WEIGHT 01/13/2023 12:36:40 153 (lbs ) Final EST'D DATE OF DELIVERY 01/13/2023 12:36:40 06/28/2023 Final MAVIS DETERMINED BY 01/13/2023 12:36:40 LMP Final MOTHER'S ETHNIC ORIGIN 01/13/2023 12:36:40 WHITE Final NUMBER OF FETUSES 01/13/2023 12:36:40 1 Final INSULIN DEPEND DIABETIC 01/13/2023 12:36:40 NO Final REPEAT SPECIMEN 01/13/2023 12:36:40 NO Final HX OF NEURAL TUBE DEFECTS 01/13/2023 12:36:40 NO Final PREV DOWN SYND 01/13/2023 12:36:40 NO Final DONOR EGG 01/13/2023 12:36:40 NO Final DONOR AGE: EGG RETRIEVAL 01/13/2023 12:36:40 NOT GIVEN Final Test performed by [facility]
[address],
[place] [address]

Science Manager: Milka Saxena MD,PHD,GABINO
Test Reported by [facility],
[facility],
[address] [place], [place]
Ciaran Hoover M.D., Ph.D., Director of Laboratories
, LEXX [id number] Performing Location
--- OUTSIDE RECORDS SUMMARY | 2023-07-09 08:12 | External Medical Summary | Summary of Care ---
Author Name Unknown Organization [facility] Address [address] [facility] [place] [address] Phone [phone] Care Team Providers Care Development Scientist Name Role Phone Mushtaq Sanchezjaspreet Belledrew Primary Care Provider Reason for Visit * Reason Comments Return Visit Encounter Details Date Type Department Care Team Description 02/02/2023 Office Visit Gynecology/Obstetrics [facility] [address] [place] [address] Katie Scales CRNP [address] [place] [id number] Supervision of normal first , antepartum*; Rh negative status during in second trimester; Umbilical cord cyst during , antepartum Allergies Active Allergy Reactions Severity Noted Date Comments Ciprofloxacin Hives 09/24/2016 Sulfa Antibiotics Hives Low 09/24/2016 documented as of this encounter (statuses as of 02/02/2023) Medications Medication Sig Dispensed Refills Start Date End Date Status 19 29-1 MG Oral Tablet Chewable Take by mouth. 0 Activ e documented as of this encounter (statuses as of 02/02/2023) Active Problems Problem Noted Date Umbilical cord [...] as of this encounter (statuses as of 02/02/2023) Immunizations Name Administration Dates Next Due COVID-19 mRNA, LNP-s, No Pre serve, 2-Dose Series (Insurance Business Applications) 05/27/2021,08/18/2020,07/28/2020 Hepatitis B, 0-19 yrs 08/10/1996,1995,10/08 IPV [...] Sign Reading Time Taken Comments Blood Pressure 110/60 02/02/2023 8:02 AM EDT Pulse - - Temperature - - Respiratory Rate - - Oxygen Saturation - - Inhaled Oxygen Concentration - - Weight 74.5 kg (164 lb 3.2 oz) 02/02/2023 8:02 A M EDT Height 170.2 cm (5' 7") 02/02/2023 8:02 AM EDT Body Mass Index 25.72 02/02/2023 8:02 AM EDT documented in this encounter Progress Notes * SURI Melgoza - 02/02/2023 8:16 AM EDT 19w1d Has a crawling feeling under left breast lasting about 5 seconds, occurring maybe every other day. No cardiac symptoms. No other concerns. +FM. No bleeding. Has anatomy u/s through MFM later this week. SURI Melgoza documented in this encounter Nursing Notes * JACKLYN Alarcon - 02/02/2023 8:07 AM EDT 19w1d Pt denies any concerns, anatomy u/s with mfm 02/05/23. documented in this encounter Plan of Treatment Upcoming Encounters Date Type Specialty Care Team Description 02/05/2023 Office Visit Maternal Medicine Malu Canales, DO [address] [place] [facility] [place] [address] 02/05/2023 Imaging Radiology 02/24/2023 Office Visit Gynecology Obstetrics Katie Scales CRNP [address] [place] [address] 04/01/2023 Office Visit Gynecology Obstetrics BackerLinette CRNP [address] [place] [address] 04/16/2023 Office Visit Gynecology Obstetrics Backer SURI Quintanilla [address] [place] [address] 05/05/2023 Office Visit Gynecology Obstetrics Elsy Shafer MD [address] [place] [address] 05/18/2023 Office Visit Gynecology Obstetrics Jonathan Buckley MD [address] [place] [address] 06/02/2023 Office Visit Gynecology Obstetrics Katie Scales CRNP [address] [place] [address] 06/11/2023 Office Visit Gynecology Obstetrics Katie Scales CRNP [address] [place] [address] 06/16/2023 Office Visit Gynecology Obstetrics Jonathan Buckley MD [address] [place] [address] 06/23/2023 Office Visit Gynecology Obstetrics BackerLinette CRNP [address] [place] [address] 06/28/2023 Office Visit Gynecology Obstetrics Raven Abarca, NESHA [address] [place] [address] Health Maintenance Due Date Last Done Comments [...] antepartum documented in this encounter Care Teams Development Scientist Relationship Specialty Start Date End Date Patrick Sanchez DO [address] [place] [address] PCP - General Family Medicine 07/28/21 documented as of this encounter
[2023-07-09] MEDS ORDERED: bisacodyL 10 MG SUPP PR PRN (10:41)
[2023-07-09] MEDS ORDERED: DIPHTHERIA/TETANUS/PERTUSSIS Vaccine (Tdap, Age 7+yrs) 0.5mL SYR/VL IM ONE (10:41)
[2023-07-09] MEDS ORDERED: BENZOCAINE 20% SPRY 85 APPLN/85 GM CAN EXT PRN (10:41)
[2023-07-09] MEDS ORDERED: HYDROCORTISONE ACETATE 25 MG SUPP PR PRN (10:41)
[2023-07-09] MEDS ORDERED: miSOPROStoL 200 MCG TAB PR ONE (10:41)
[2023-07-09] MEDS ORDERED: METHYLERGONOVINE MALEATE 0.2 MG/ML AMP IM ONE (10:41)
[2023-07-09] MEDS ORDERED: ACETAMINOPHEN 325 MG TAB PO PRN (10:41)
--- NOTE | 2023-07-09 10:43 | Delivery Summary ---
Vaginal Delivery Summary Date of Service DDELIVERY NOTE Patient delivered a live infant male in left occiput anterior and left hand presentation there was nuchal cord which was easily reduced. Infant was delivered and placed on mother's abdomen. Delayed cord clamping was performed. cord blood is obtained Placenta is spontaneously delivered. Placenta appears grossly normal and has 3 vessel cord Inspection of the perineum showed a second-degree midline laceration. Laceration is repaired in layers with 2-0 Vicryl in layers Rectal exam post repair showed good sphincter tone no sutures palpated in the rectum. Estimated blood loss is 450 cc per Infants weight and scores are in the pediatric record Mother and baby are stable in in the recovery
[2023-07-09] MEDS ORDERED: METHYLERGONOVINE MALEATE 0.2 MG/ML AMP ONE (10:45)
--- NOTE | 2023-07-09 12:01 | Anesthesia Procedure Note ---
Date of Service July 09, 2023 Anesthesia Post Epidural Note Vital Signs Vital Signs: Temp Pulse Resp BP Pulse Ox 37.2 C 65 20 173/95 H 95 07/09/23 09:03 07/09/23 11:47 07/09/23 10:01 07/09/23 11:47 07/09/23 10:31 Pain Intensity Abdomen: Pain Intensity: 5 Notes Mental Status: alert / awake / arousable Nausea / Vomiting: adequately controlled Pain: adequately controlled Airway Patency, RR, SpO2: stable & adequate BP & HR: stable & adequate Hydration State: stable & adequate Neuraxial Anesthesia: was administered and sensory block is resolving Anesthetic Complications: no major complications apparent and Pt Satisfied with anesthetic care Epidural: Removed without complications and With tip intact
[2023-07-09] MEDS: DOCUSATE SODIUM 100 MG CAP PO SCH (20:47)
[2023-07-09] MEDS: IBUPROFEN 600 MG TAB PO PRN (20:47)
[2023-07-10] MEDS: IBUPROFEN 600 MG TAB PO PRN ×2 (01:22→07:45)
[2023-07-10] MEDS: DOCUSATE SODIUM 100 MG CAP PO SCH (07:45)
[2023-07-10 07:53] LABS: Hematocrit (blood only) 35.8 % (37.0-47.0); Hemoglobin 12.7 g/dl (12.0-16.0); Mean Corpuscular Hgb Conc 35.5 g/dL (32.0-36.0); Mean Corpuscular Volume 90.2 fL (80.0-100.0); Mean Platelet Volume 10.3 fL (9.4-12.4); Platelet Count 128 K/uL (130-400); RDW Coefficient of Variation 12.7 % (11.5-14.5); RDW Standard Deviation 41.4 fL (36.4-46.3); Red Blood Count 3.97 M/uL (4.20-5.40); White Blood Count 10.11 K/ul (4.8-10.8)
[2023-07-10] MEDS ORDERED: PRENATAL VITAMIN 1 TAB PO SCH (08:00)
--- NOTE | 2023-07-10 08:13 | Obstetrical Progress Note ---
Date of Service July 10, 2023 Assessment & Plan (1) Normal course: PPD #1 pt doing well d/c home with instructions Subjective Ambulation: ambulating normally Voiding: no voiding problems Passing Gas:: Yes Diet Tolerance:: regular diet Lochia:: Small Feeding Type:: breast feeding Review of Systems All systems reviewed & are unremarkable except as noted in HPI & below Physical Exam Constitutional WD/WN, vitals as above well developed and well nourished Eyes PERRL, conjunctivae normal, anicteric sclerae Neck trachea midline, no thyromegaly Respiratory normal respiratory effort, lungs clear to auscultation Auscultation: no crackles, no rales and no wheezes Cardiovascular RRR, no murmur, no edema Gastrointestinal (Abdomen) normal bowel sounds, soft, nontender, no hepatosplenomegaly Uterus is below umbilicus Musculoskeletal no cyanosis or clubbing, extremities motor strength 5/5 Skin no rashes, warm and dry Neurologic patellar DTR's 2+ bilat, sensation intact Psychiatric A+Ox3, euthymic affect Genitourinary normal external appearance Results & Data Vital Signs (Past 12 Hours) Vital Signs Temp Pulse Pulse Resp BP Pulse Ox O2 Del Method 07/10/23 07:46 36.8 C 58 L 18 110/71 97 Room Air 07/10/23 04:00 36.7 C 57 L 16 106/68 97 Room Air 07/09/23 22:31 36.7 C 58 L 18 113/73 96 Room Air
--- NOTE | 2023-07-10 08:58 | Obstetrical Progress Note ---
Date of Service July 10, 2023 Assessment & Plan (1) Normal course: Plan: pt now wishes to go home today Admission and Anticipated Discharge Date Admission Date: July 09, 2023 Results & Data Vital Signs (Past 12 Hours) Vital Signs Temp Pulse Pulse Resp BP Pulse Ox O2 Del Method 07/10/23 07:46 36.8 C 58 L 18 110/71 97 Room Air 07/10/23 04:00 36.7 C 57 L 16 106/68 97 Room Air 07/09/23 22:31 36.7 C 58 L 18 113/73 96 Room Air
[2023-07-10] MEDS ORDERED: bisacodyL 5 MG TABEC PO SCH (20:00)
== END 2023-07-10 15:40 | disposition home or self-care (01) | DRG 807 ==
LOC: 4S1 00:28 → 4E2 14:41